=== PATIENT | male | born 1980 | race Caucasian/White ===

== ENCOUNTER → 2022-10-21 11:52 | Outpatient (BNVA) | payer OTHER, SELFPAY | PROVIDERS: PCP Family Medicine; Visit Provider Physician Assistant | DX: Z13.89 Encounter for screening for other disorder (principal) ==

== ENCOUNTER 2022-12-01 07:28 | Outpatient (REF) | payer OTHER, SELFPAY ==
[2022-12-01 11:29] LABS: Appearance Urine Clear; Color Urine Yellow; Glucose Urine UA Negative (Negative); Leukocyte Esterase Urine Negative (Negative); Nitrite Urine Negative (Negative); Specific Gravity - Urine 1.015 (1.005-1.025); Urine Blood Negative (Negative); Urine Ketones Negative (Negative); Urine Protein Negative (Neg-Trace)
[2022-12-01 12:06] LABS: Alanine Aminotransferase 38 U/L (0-40); Albumin Level 4.3 g/dL (3.5-5.0); Alkaline Phosphatase 56 U/L (39-117); Anion Gap 12 (12-20); Aspartate Amino Transferase 20 U/L (5-37); Bilirubin Total 0.7 mg/dL (0.0-1.0); Blood Urea Nitrogen 13 mg/dL (9-16); Calcium 9.2 mg/dL (8.4-10.2); Carbon Dioxide 28 mmol/L (22-29); Chloride 106 mmol/L (96-108); Cholesterol 285 mg/dL; Estimated Glomerular Filt Rate > 60; Glucose Fasting 92 mg/dL (60-99); HDL Cholesterol 44 mg/dL; LDL Cholesterol Calculated 182 mg/dl; Potassium 3.9 mmol/L (3.3-5.1); Sodium 142 mmol/L (135-145); Total Protein 6.3 g/dL (6.5-8.0); Triglycerides 298 mg/dL
[2022-12-01 12:11] LABS: Creatinine Urine 133.77 mg/dL; Microalbum/Creatinine Ratio Ur 3.7 ug/mg cr
[2022-12-01 12:26] LABS: Prostate Specific Antigen Scr 1.72 ng/mL (<0.05-4.0); TSH reflex Free T4 2.62 uIU/mL (0.32-4.0)
[2022-12-08 13:38] LABS: Testosterone, Total 439 ng/dL (250-1100)
== END 2022-12-01 07:29 | disposition home or self-care (01) ==
LOC: HO.WFDLDS 07:28
PROVIDERS: Visit Provider Family Medicine
DX: Z00.00 Encounter for general adult medical examination without abnormal findings (principal); Z12.5 Encounter for screening for malignant neoplasm of prostate; I10 Essential (primary) hypertension; N53.19 Other ejaculatory dysfunction
CPT/HCPCS: 36415; 80053; 80061; 81003; 82043; 84153; 84402; 84403; 84443

== ENCOUNTER 2022-12-04 10:17 | Outpatient (REF) | payer OTHER, SELFPAY ==
--- NOTE | ~2022-12-04 | FL_ITS ---
EXAMINATION: FL BARIUM SWALLOW CLINICAL INFORMATION: Dysphagia. COMPARISON: None available. TECHNIQUE: Barium swallow examination is performed using fluoroscopic evaluation in addition to multiple fluoroscopic spot views. The patient is imaged both upright and prone and using both thick and thin sulfate along with effervescent granules. Fluoroscopy time: 1.9 minutes DAP: 29.123 Gy-cm2 Images: 70 FINDINGS: Following oral administration of thick barium and effervescent granules, there is normal propagation of bolus from the oral cavity through the pharynx and esophagus and into the stomach without any evidence of obstruction, narrowing or stricture. On oral administration of barium-coated solid food, there is normal propagation of bolus from the oral cavity through the esophagus and into the stomach without any obstruction or narrowing. On placing patient prone lying and oral administration of thin barium, there is good distention of entire esophagus without any mucosal abnormality or extrinsic compression. There is a small sliding hiatal hernia with moderate gastroesophageal reflux. FL/FL barium swallow IMPRESSION: Small sliding hiatal hernia with moderate gastroesophageal reflux in prone and supine lying position.
== END 2022-12-04 10:18 | disposition home or self-care (01) ==
LOC: HO.XRAY 10:17
PROVIDERS: PCP Family Medicine; Visit Provider Physician Assistant
DX: R13.10 Dysphagia, unspecified (principal); K21.9 Gastro-esophageal reflux disease without esophagitis; Z80.0 Family history of malignant neoplasm of digestive organs
CPT/HCPCS: 74220

== ENCOUNTER 2023-04-02 12:30 | Day surgery (SDC) | payer OTHER, SELFPAY ==
[2023-03-31 14:35] VITALS: BMI 39.6
[2023-04-02 12:54] VITALS: BMI 38.0
[2023-04-02 13:00] VITALS: BP 155/89; PULSE 87; RESP 15; TEMP 36.8; O2SAT 98
--- NOTE | 2023-04-02 13:00 | P.CONAN_ITS ---
Documented by User: Parisa Earl NP 04/01/23 13:49 HPI - Anesthesia Eval Consult details Narrative: 42yo M for Upper Endoscopy PMFSH Active Problems Active Problems: All Active Problems (Updated 03/31/23 @ 14:30 by Liliana Rick RN) Laboratory exam ordered as part of routine general medical examination (Acute) Left hip pain (Acute) GERD (gastroesophageal reflux disease) (Acute) Family history of esophageal cancer (Acute) Right wrist pain (Acute) Cervicalgia (Acute) Cervical radiculopathy (Acute) Nasal congestion (Acute) Other ejaculatory dysfunction (Acute) Dysphagia (Acute) Adult general medical exam (Acute) Hiatal hernia (Acute) Screening for prostate cancer (Acute) Hyperlipidemia (Acute) Past Medical History Medical History Cervical radiculopathy Dysphagia Elevated cholesterol GERD (gastroesophageal reflux disease) Hiatal hernia Teeth grinding Surgical History Surgical History History of esophagogastroduodenoscopy (EGD) History of hip surgery Social History Social History Household Members Other:: Housing: Apartment Patient Tobacco Use Status: Never used Tobacco e-Cigarette/Vaping Use: Never Used Use of substances other than those prescribed or required for medical reasons: No Are you DNR?: No Advance Directives: No Advance Directives Information Provided: Yes service: No Current occupational status: 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 Hearing needs: No Vision needs: No Meds Allergies Allergy/AdvReac Type Severity Reaction Status Date / Time No Known Allergies Allergy Verified 01/27/23 09:03 Home Medications Medication Instructions Recorded Confirmed Last Taken Type triamcinolone acetonide 55 mcg 1 spray intranasal DAILY 08/28/22 03/31/23 Unknown History nasal spray aerosol (Nasacort) Exam Exam Date and Time: April 01, 2023 1349 Height,Weight and Vital Signs: Height 5 ft 10 in Weight 125.191 kg Assessment and Plan Assessment Anesthesia Assessment: Chart Reviewed Documented by User: Nita Marie DO 04/02/23 13:09 [facility] Past Medical History Medical History Cervical radiculopathy Dysphagia Elevated cholesterol GERD (gastroesophageal reflux disease) Hiatal hernia Teeth grinding Family History Family history of problems with anesthesia: No Surgical History Surgical History History of esophagogastroduodenoscopy (EGD) History of hip surgery History of Problems with Anesthesia: No Social History Social History Household Members Other:: Housing: Apartment Patient Tobacco Use Status: Never used Tobacco e-Cigarette/Vaping Use: Never Used Use of substances other than those prescribed or required for medical reasons: No Are you DNR?: No Advance Directives: No Advance Directives Information Provided: Yes service: No Current occupational status: 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 Hearing needs: No Vision needs: No Meds Allergies Allergy/AdvReac Type Severity Reaction Status Date / Time No Known Allergies Allergy Verified 01/27/23 09:03 Home Medications Medication Instructions Recorded Confirmed Last Taken Type triamcinolone acetonide 55 mcg 1 spray intranasal DAILY 08/28/22 03/31/23 Unknown History nasal spray aerosol (Nasacort) Exam Exam Date and Time: April 02, 2023 1300 Airway Mallampati Class: II TM Dist: >3cm Neck ROM: Full Loose/Missing/Broken Teeth: Yes (multiple broken teeth) Heart: S1S2 Lungs: CTAB Assessment and Plan Assessment Anesthesia Assessment: Anesthesia Plan Discussed and Chart Reviewed Final Anesthetic Review Family History of Problems with Anesthesia: No History of Problems with Anesthesia: No NPO: Yes ASA Class: II Final Preanesthetic Review: No Changes in Pt Med Stat, Meds/Allgs Chart Reviewed, Consent Obtained/Reviewed and Anes Risks/Benef Reviewed Patient Risk: Low Procedure Risk: Low Anesthetic Plan Anesthetic Plan: MAC: and Agree w/ Assess. and Plan Disposition: Standard PACU
[2023-04-02] MEDS: Lactated Ringers 1,000 ML 100 ML IVCONT (13:12)
--- NOTE | 2023-04-02 13:15 | P.HPSUR_ITS ---
Pre-Procedural Eval Section A Date of Service: 04/02/23 Section B Chief Complaint: Gastro-esophageal reflux disease without Details of Present Illness: FH of esophgeal ca, denies dysphagia but has had in past per HPI from GI office Relevant Family History (Specify if Yes): Yes Relevant Social History: None Present Medications: see Short Stay Collaborative assessment Medical History: Significant History (GERD) History of Previous Operations: No relevant previous surgery Allergies: Allergies Allergy/AdvReac Type Severity Reaction Status Date / Time No Known Allergies Allergy Verified 01/27/23 09:03 Review of Systems Sugical H&P ROS: Negative: Constitution, Cardiovascular, Respiratory, Neurological, Psychiatric, Hem-Onc, Allergic/Immunologic, Gastrointestinal, Genitourinary, Musculoskeletal, Integumentary, Endocrine and Eyes/E ars/Nose/Throat Exam Surgical H&P Exam: Normal: HEENT, Normal: Heart, Normal: Lungs, Normal: Extremities, Normal: Abdomen, Normal: Skin and Normal: Neurological Plan Diagnosis/Plan: Unchanged I have reviewed the history and physical and performed a pertinent physical examination on my patient. No changes have occurred unless specified. Time Spent With Patient Time: Total time managing care of this patient today ____ minutes.
--- NOTE | 2023-04-02 13:16 | W.PM.OPN ---
Operative Note Operative Note Date of Service: 04/02/23 Narrative: Procedure Description: EGD Indication: gERD Anesthesia: MAC FLEXIBLE TRANSORAL UPPER GASTROINTESTINAL ENDOSCOPY UPPER ENDOSCOPY Consent: Indications for the procedure and potential complications of bleeding, perforation, reaction to medications and missed diagnosis were discussed with the patient and informed consent was obtained. Instrument: Olympus GIF H 190 J mid size upper endoscope Monitoring: Vital signs and clinical assessment, continuous EKG monitoring, Pulse oximetry, Carbon Dioxide monitoring and blood pressure monitoring were done throughout the procedure. Procedure: The patient was placed in the left lateral decubitis position and pre-procedure medications were administered and a bite block was placed. The endoscope was inserted into the mouth and advanced under direct vision to the third part of duodenum. A careful inspection was made as the upper endoscope was withdrawn including a retroflexed examination of the proximal stomach; Findings and interventions are described below. Findings: Larynx:normal Esophagus: GE junction at 40 cm, diaphragm hiatus at 40 cm, some bogginess at GEJ, bx taken from GEJ, distal and proximal esophagus in separate jars Stomach: Mild patchy gastric erythema. Biopsies were obtained. Grade 2 flap valve on retroflexed examination of the cardia. there were many fundic gland polyps in mid body, some were 12-16 mm and these were removed with cold snare and retireved with net Duodenum: Normal bulb and descending duodenum, Intervention: Biopsies as noted above, polypectomy Impression/Findings: fundic gland polyps esophagitis gastritis PLAN: await bx results
[2023-04-02 13:45] VITALS: BP 127/90; PULSE 95; RESP 20; TEMP 36.3; O2SAT 95
[2023-04-02 14:00] VITALS: BP 140/87; PULSE 80; RESP 20; TEMP 36.7; O2SAT 96
== END 2023-04-02 14:40 | disposition home or self-care (01) ==
PROVIDERS: PCP Family Medicine; Visit Provider Internal Medicine Gastroenterology
PROC: 0DJ08ZZ Inspection of Upper Intestinal Tract, Via Natural or Artificial Opening Endoscopic (ICD-10-PCS; CPT 43235; principal; 2023-04-02 14:10)
DX: K31.7 Polyp of stomach and duodenum (principal); K20.90 Esophagitis, unspecified without bleeding; K21.9 Gastro-esophageal reflux disease without esophagitis; R13.10 Dysphagia, unspecified; K44.9 Diaphragmatic hernia without obstruction or gangrene; E78.5 Hyperlipidemia, unspecified; Z80.0 Family history of malignant neoplasm of digestive organs; Z79.899 Other long term (current) drug therapy
CPT/HCPCS: 43239; 43251; 88305; 88342

== ENCOUNTER → 2023-04-02 12:30 | Outpatient (BNV) | payer OTHER, SELFPAY | PROVIDERS: PCP Family Medicine; Visit Provider Internal Medicine Gastroenterology | DX: K21.9 Gastro-esophageal reflux disease without esophagitis (principal); K29.70 Gastritis, unspecified, without bleeding; K20.90 Esophagitis, unspecified without bleeding | CPT/HCPCS: 43239 ==

== ENCOUNTER 2023-04-14 13:46 | Outpatient (AMB) | payer OTHER, SELFPAY ==
--- NOTE | 2023-04-14 13:43 | A.OFFVIS_ITS ---
Intake Vital Signs 04/14/23 13:49 Height 5 ft 10 in Weight 269 lb BMI 38.6 BP 138/82 Blood Pressure Location Lt brachial Position Sitting Pulse 86 Intake Visit Reasons: S/P EGD; Dr. Delacruz Intake Note: Patient follow up for barium swallow and EGD results. Patient denies any GI issues for today. Nutrient Management Specialist Required: No Accompanied by: Self / Same As Patient Allergies No Known Allergies Allergy (Verified 04/14/23 13:47) HPI HPI Comments History of Present Illness Details A 42 y/o male seen in October with dysphagia-presents today after having EGD with biopsy He no longer has at dysphagia he is taking omeprazole with very good response To reviewed procedure report, pathology and recommendation [facility] Medical History (Updated 04/14/23 @ 14:49 by Sangeeta Lainez PA-C) Cervical radiculopathy Dysphagia Elevated cholesterol GERD (gastroesophageal reflux disease) Hiatal hernia Teeth grinding Surgical History History of esophagogastroduodenoscopy (EGD) History of hip surgery Social History Household Members Other:: Housing: Apartment Patient Tobacco Use Status: Never used Tobacco e-Cigarette/Vaping Use: Never Used service: No Current occupational status: 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 Status: [facility] Collected: 04/02/23 Location: [facility] Received: 04/02/23 Diagnosis A.? Stomach, biopsy:? Gastric body mucosa within normal limits; negative for Helicobacter pylori, intestinal metaplasia and dysplasia. B.? Gastroesophageal junction, biopsy:? Squamous and columnar junctional mucosa with mild chronic inflammation; negative for intestinal metaplasia and dysplasia.? C.? Esophagus, distal, biopsy:? Squamous mucosa within normal limits; negative for inflammation (including intraepithelial eosinophils), fungal organisms and intestinal metaplasia.? D.? Esophagus, proximal, biopsy:? Squamous mucosa within normal limits; negative for inflammation (including intraepithelial eosinophils), fungal organisms and intestinal metaplasia.? E.? Stomach, polyps, biopsy:? Fundic gland polyp (s). Clinical History Pre-Op Dx:? GERD Post-Op Dx: Gastric polyps, esophagitis Assessment & Plan Assessment & Plan (1) Fundic gland polyps of stomach, benign: Comment: Reviewed procedure report, pathology and recommendation Code(s): D13.1 - Benign neoplasm of stomach (2) GERD (gastroesophageal reflux disease): Code(s): K21.9 - Gastro-esophageal reflux disease without esophagitis Plan: Continue PPI Plan Call with concerns Continue PPI Patient Instructions: Call with concerns Continue PPI Coding Level of Care Code Est Pt Level 3 (29646) Diagnoses Fundic gland polyps of stomach, benign D13.1 GERD (gastroesophageal reflux disease) K21.9 Time Spent (min) 20
[2023-04-14 13:49] VITALS: BP 138/82; PULSE 86; BMI 38.6
== END 2023-04-14 16:33 | disposition home or self-care (01) ==
LOC: HO.HGIW 13:46
PROVIDERS: PCP Family Medicine; Visit Provider Physician Assistant
DX: D13.1 Benign neoplasm of stomach (principal); K21.9 Gastro-esophageal reflux disease without esophagitis
CPT/HCPCS: 99213

== ENCOUNTER → 2023-04-14 13:46 | Outpatient (BNVA) | payer OTHER, SELFPAY | PROVIDERS: PCP Family Medicine; Visit Provider Physician Assistant ==

== ENCOUNTER 2023-05-04 07:03 | Outpatient (REF) | payer OTHER, SELFPAY ==
[2023-05-04 12:07] LABS: Anion Gap 13 (12-20); Blood Urea Nitrogen 11 mg/dL (9-16); Calcium 9.9 mg/dL (8.4-10.2); Carbon Dioxide 25 mmol/L (22-29); Chloride 106 mmol/L (96-108); Cholesterol 275 mg/dL (<200); Estimated Glomerular Filt Rate > 60; Glucose Fasting 110 mg/dL (60-99); HDL Cholesterol 50 mg/dL (>40); LDL Cholesterol Calculated 161 mg/dL (<100); Potassium 3.7 mmol/L (3.3-5.1); Sodium 140 mmol/L (135-145); Triglycerides 322 mg/dL (<150)
== END 2023-05-04 07:04 | disposition home or self-care (01) ==
LOC: HO.WFDLDS 07:03
PROVIDERS: Visit Provider Family Medicine
DX: Z00.00 Encounter for general adult medical examination without abnormal findings (principal); E78.5 Hyperlipidemia, unspecified
CPT/HCPCS: 36415; 80048; 80061

== ENCOUNTER 2023-05-07 15:36 | Outpatient (AMB) | payer OTHER, SELFPAY ==
[2023-05-07 15:50] VITALS: BP 130/70; PULSE 82; O2SAT 97; BMI 39.3
--- NOTE | 2023-05-07 15:50 | A.OFFPC_ITS ---
Vital Signs 05/07/23 15:50 Height 5 ft 10 in Weight 274 lb 4 oz BMI 39.3 BP 130/70 Blood Pressure Location Lt brachial Position Sitting Pulse 82 Pulse Source Pulse Oximeter Pulse Oximetry (%) 97 Oxygen Delivery Method Room Air Intake Visit Reasons: f/u hyperlipidemia Intake Note: Patient is here to follow up ojn his blood work today. Allergies No Known Allergies Allergy (Verified 04/14/23 13:47) Tobacco use date assessed: 05/07/23 HPI f/u hyperlipidemia HPI Details 43 y/o male presents to f/u HLD. Labs were drawn 05/04/23. Reviewed labs wth pt. Triglycerides worsened from 298 to 322. TC 275. LDL improved from 182 to 161. HDL 50. 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 Joaquim Fox, Theresa Morales, Travis Gamble and colleagues, with an educational buddy from [employer]. Review of Systems Const Denies chills, Denies fatigue, Denies fever(s), Denies headache(s) and Denies weakness ENT Denies dizziness and Denies headache(s) Card Denies dyspnea Resp Denies cough, Denies dyspnea, Denies wheezing and Denies other (shortness of breath) Musc Denies numbness and Denies tingling Neuro Denies dizziness, Denies headache(s), Denies numbness, Denies tingling and Denies weakness Psych Denies anxiety and Denies depression Endo Denies fatigue Aller/Immun Denies wheezing Physical exam (Primary Care) Vital Signs: Last Vital Signs Pulse 82 05/07/23 15:50 BP 130/70 05/07/23 15:50 Pulse Ox 97 05/07/23 15:50 Oxygen Delivery Method Room Air 05/07/23 15:50 BMI result Body Mass Index 39.3 Tobacco/Smoking Status: Tobacco use Status Tobacco use date assessed 05/07/23 05/07/23 15:57 Patient Tobacco Use Status Never used Tobacco 05/07/23 15:57 e-Cigarette/Vaping Use Never Used 05/07/23 15:57 Thrive Assessment: Date of Thrive Assessment Date Thrive assessed 01/27/23 05/07/23 15:57 Const General: well developed; No acute distress Nutritional Appearance: obese Orientation/consciousness: patient oriented x3 HENMT Head: Yes normocephalic and Yes atraumatic Eyes General: appearance normal, both eyes and all related structures Pupils: Equal, round and reactive pupils present EOM: EOMs intact bilaterally Resp Effort & Inspection: normal respiratory effort Auscultation: clear to auscultation bilaterally Cardio Rate: regular rate Rhythm: regular rhythm Heart sounds: S1 normal heart sound present, S2 normal heart sound present, no gallops, no murmurs and no rubs Neuro General: patient oriented x3 and gait normal Cranial nerves: Yes Equal, round and reactive pupils present Psych Affect: normal affect Assessment and Plan Assessment & Plan (1) Hyperlipidemia: Code(s): E78.5 - Hyperlipidemia, unspecified Plan: Patient was able to bring his TC and LDL cholesterol down but is still significantly above goal of less than 130 for LDL cholesterol Will start atorvastatin 40 mg daily. Recheck in a few months Orders: Orders Lipid Panel Today E78.5 - Hyperlipidemia, unspecified, Z00.00 - Encounter for general adult medical examination without abnormal findings Comprehensive [place]. Panel Fast Today E78.5 - Hyperlipidemia, unspecified, Z00.00 - Encounter for general adult medical examination without abnormal findings Medications: New atorvastatin 40 mg PO BEDTIME 30 tabs 3RF 30 days Coding Level of Care Code Est Pt Level 3 (68532) Diagnoses Hyperlipidemia E78.5
== END 2023-05-07 16:23 | disposition home or self-care (01) ==
PROVIDERS: PCP Family Medicine; Visit Provider Family Medicine
DX: E78.5 Hyperlipidemia, unspecified (principal)
CPT/HCPCS: 99213

== ENCOUNTER 2023-07-31 07:31 | Outpatient (REF) | payer OTHER, SELFPAY ==
[2023-07-31 11:44] LABS: Alanine Aminotransferase 50 U/L (0-40); Albumin Level 4.5 g/dL (3.5-5.0); Alkaline Phosphatase 76 U/L (39-117); Anion Gap 12 (12-20); Aspartate Amino Transferase 23 U/L (5-37); Bilirubin Total 0.5 mg/dL (0.0-1.0); Blood Urea Nitrogen 14 mg/dL (9-16); Calcium 9.6 mg/dL (8.4-10.2); Carbon Dioxide 25 mmol/L (22-29); Chloride 106 mmol/L (96-108); Cholesterol 170 mg/dL (<200); Estimated Glomerular Filt Rate > 60; Glucose Fasting 93 mg/dL (60-99); HDL Cholesterol 43 mg/dL (>40); LDL Cholesterol Calculated 81 mg/dL (<100); Potassium 3.4 mmol/L (3.3-5.1); Sodium 140 mmol/L (135-145); Total Protein 7.1 g/dL (6.5-8.0); Triglycerides 233 mg/dL (<150)
== END 2023-07-31 07:32 | disposition home or self-care (01) ==
LOC: HO.WFDLDS 07:31
PROVIDERS: Visit Provider Family Medicine
DX: Z00.00 Encounter for general adult medical examination without abnormal findings (principal); E78.5 Hyperlipidemia, unspecified
CPT/HCPCS: 36415; 80053; 80061

== ENCOUNTER 2023-08-05 15:40 | Outpatient (AMB) | payer OTHER, SELFPAY ==
--- NOTE | 2023-08-05 15:54 | A.OFFPC_ITS ---
Vital Signs 08/05/23 15:56 Height 5 ft 10 in Weight 278 lb 6 oz BMI 39.9 BP 120/72 Blood Pressure Location Lt brachial Position Sitting Pulse 76 Pulse Source Pulse Oximeter Pulse Oximetry (%) 97 Oxygen Delivery Method Room Air Intake Visit Reasons: f/u HLD Intake Note: Patient is here for follow up on HDL. Allergies No Known Allergies Allergy (Verified 08/05/23 15:57) Tobacco use date assessed: 05/07/23 HPI f/u HLD HPI Details 43 y/o male presents to f/u HLD. Labs were drawn 07/31/23. Reviewed labs with pt. Elevated ALT of 50. Triglycerides 233. TC 170. LDL 81. HDL 43. He is on artovastatin 40mg daily. 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 Joaquim Fox, Theresa Morales, rTavis Gamble and colleagues, with an educational buddy from [employer]. Review of Systems Const Denies chills, Denies fatigue, Denies fever(s), Denies headache(s) and Denies weakness ENT Denies dizziness and Denies headache(s) Card Denies dyspnea Resp Denies cough, Denies dyspnea, Denies wheezing and Denies other (shortness of breath) Musc Denies numbness and Denies tingling Neuro Denies dizziness, Denies headache(s), Denies numbness, Denies tingling and Denies weakness Psych Denies anxiety and Denies depression Endo Denies fatigue Aller/Immun Denies wheezing Physical exam (Primary Care) Vital Signs: Last Vital Signs Pulse 76 08/05/23 15:56 BP 120/72 08/05/23 15:56 Pulse Ox 97 08/05/23 15:56 Oxygen Delivery Method Room Air 08/05/23 15:56 BMI result Body Mass Index 39.9 Tobacco/Smoking Status: Tobacco use Status Tobacco use date assessed 05/07/23 08/05/23 15:55 Patient Tobacco Use Status Never used Tobacco 08/05/23 15:55 e-Cigarette/Vaping Use Never Used 08/05/23 15:55 Thrive Assessment: Date of Thrive Assessment Date Thrive assessed 01/27/23 08/05/23 15:55 Const General: well developed; No acute distress Nutritional Appearance: well nourished Orientation/consciousness: patient oriented x3 HENMT Head: Yes normocephalic and Yes atraumatic Eyes General: appearance normal, both eyes and all related structures Pupils: Equal, round and reactive pupils present EOM: EOMs intact bilaterally Resp Effort & Inspection: normal respiratory effort Neuro General: patient oriented x3 and gait normal Cranial nerves: Yes Equal, round and reactive pupils present Psych Affect: normal affect Assessment and Plan Assessment & Plan (1) Hyperlipidemia: Code(s): E78.5 - Hyperlipidemia, unspecified Plan: Lipids?are?much?improved. Mild?elevation?in?ALT; possible?relation?to?medication?but?I?doubt?this Nevertheless?will?decrease?atorvastatin?to?20?mg?daily?and?recheck?lipids?and?li samina?enzymes?in?2?months. (2) Elevated ALT measurement: Code(s): R74.01 - Elevation of levels of liver transaminase levels Plan: As?above Also?advised?patient?hydrate?well?and?work?at?some?weight?loss Orders: Orders Comprehensive [place]. Panel Fast Today E78.5 - Hyperlipidemia, unspecified, Z00.00 - Encounter for general adult medical examination without abnormal findings Lipid Panel Today E78.5 - Hyperlipidemia, unspecified, Z00.00 - Encounter for general adult medical examination without abnormal findings Medications: Changed From atorvastatin 40 mg PO BEDTIME 30 tabs 3RF 30 days To atorvastatin 20 mg PO BEDTIME 30 tabs 3RF 30 days Coding Level of Care Code Est Pt Level 3 (90010) Diagnoses Hyperlipidemia E78.5 Elevated ALT measurement R74.01
[2023-08-05 15:56] VITALS: BP 120/72; PULSE 76; O2SAT 97; BMI 39.9
== END 2023-08-05 16:34 | disposition home or self-care (01) ==
PROVIDERS: PCP Family Medicine; Visit Provider Family Medicine
DX: E78.5 Hyperlipidemia, unspecified (principal); R74.01 Elevation of levels of liver transaminase levels
CPT/HCPCS: 99213

== ENCOUNTER 2023-10-06 07:07 | Outpatient (REF) | payer OTHER, SELFPAY ==
[2023-10-06 12:02] LABS: Alanine Aminotransferase 34 U/L (0-40); Albumin Level 4.5 g/dL (3.5-5.0); Alkaline Phosphatase 79 U/L (39-117); Anion Gap 14 (12-20); Aspartate Amino Transferase 20 U/L (5-37); Bilirubin Total 0.4 mg/dL (0.0-1.0); Blood Urea Nitrogen 9 mg/dL (9-16); Calcium 9.7 mg/dL (8.4-10.2); Carbon Dioxide 26 mmol/L (22-29); Chloride 105 mmol/L (96-108); Cholesterol 197 mg/dL (<200); Estimated Glomerular Filt Rate > 60; Glucose Fasting 92 mg/dL (60-99); HDL Cholesterol 48 mg/dL (>40); LDL Cholesterol Calculated 116 mg/dL (<100); Sodium 141 mmol/L (135-145); Total Protein 7.3 g/dL (6.5-8.0); Triglycerides 166 mg/dL (<150)
== END 2023-10-06 07:08 | disposition home or self-care (01) ==
LOC: HO.WFDLDS 07:07
PROVIDERS: Visit Provider Family Medicine
DX: Z00.00 Encounter for general adult medical examination without abnormal findings (principal); E78.5 Hyperlipidemia, unspecified
CPT/HCPCS: 36415; 80053; 80061

== ENCOUNTER 2023-10-08 14:24 | Outpatient (AMB) | payer OTHER, SELFPAY ==
--- NOTE | 2023-10-08 14:28 | A.OFFPC_ITS ---
Vital Signs 10/08/23 14:30 Height 5 ft 10 in Weight 277 lb 8 oz BMI 39.8 BP 143/77 H Blood Pressure Location Rt brachial Position Sitting Pulse 79 Pulse Source Pulse Oximeter Pulse Oximetry (%) 98 Oxygen Delivery Method Room Air Intake Visit Reasons: f/u HLD Intake Note: Patient is following up on HLD, and would like to talk about Finasteride, and right shoulder pain. Allergies No Known Allergies Allergy (Verified 08/05/23 15:57) Tobacco use date assessed: 05/07/23 HPI f/u HLD HPI Details 43 y/o male presents to f/u hyperlipide kirstin and elevated liver enzymes. Decreased artovastatin as his LDL cholesterol improved significantly and HDL had dropped some as well. Labs were drawn 10/06/23. Reviewed labs with pt. Triglycerides improved from 233 to 166. TC 197. LDL 116. HDL 48. He is on artovastatin 20mg. Liver enzymes back to normal range. Pt reports R shoulder pain after falling at work. Pt is requesting finasteride for complaints of hair thinning. HPI Comments History of Present Illness Details Documentation assistance for Rodney eKyes MD, was provided by Kevin Smith,? Flosser on 10/08/2023 3:03 PM EST. I, Dr. Keyes, have read, observed, and verified documentation.? 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 1. Little interest or pleasure in doing things: not at all 2. Feeling down, depressed, or hopeless: not at all 3. Trouble falling or staying asleep, or sleeping too much: not at all 4. Feeling tired or having little energy: not at all 5. Poor appetite or overeating: not at all 6. Feeling bad about yourself - or that you are a failure or have let yourself or your family down: not at all 7. Trouble concentrating on things, such as reading the newspaper or watching television: not at all 8. Moving or speaking so slowly that other people could have noticed. Or the opposite - being so fidgety or restless that you have been moving around a lot more than usual: not at all 9. Thoughts that you would be better off or of hurting yourself in some way: not at all Total score: 0 Depression Screening Interpretation: Negative Depression Screening Done: Yes Source: Developed by Drs. Joaquim Fox, Theresa Morales, Travis Gamble and colleagues, with an educational buddy from [employer]. Thrive Questionnaire Date Thrive assessed: 10/08/23 I am a: Patient What is your living situation today?: I have a steady place to live Within the past 12 months, did the food you bought not last and you didn't have the money to get more?: Never true Within the past 12 months, did you worry whether your food would run out before you got money to buy more?: Never true Do you have trouble paying for medicines?: No Do you have trouble getting transportation to medical appointments?: No Do you have trouble paying your heating and electricity bill?: No Do you have trouble taking care of your child, family member or friend?: No Do you have trouble with day-to-day activities such as bathing, preparing meals, shopping, managing finances, etc.?: No Are you currently unemployed and looking for a job?: Yes Are you interested in more education?: No THRIVE Score: 0 AUDIT C Alcohol Use Questionnaire (AUDIT-C) 1. How often do you have a drink containing alcohol?: Monthly or less 2. How many drinks containing alcohol do you have on a typical day when you are drinking?: 1 or 2 3. How often do you have six or more drinks on one occasion?: Never Total Score: 1 OJ-7 AMB Questionnaire OJ-7 Date OJ - 7 assessed: 10/08/23 Feeling nervous, anxious, or on edge: 0 = Not at all Not being able to stop or control worryin = Not at all Worrying too much about different things: 0 = Not at all Trouble relaxin = Not at all Being so restless that it is hard to sit still: 0 = Not at all Becoming easily annoyed or irritable: 0 = Not at all Feeling afraid as if something awful might happen: 0 = Not at all Total OJ-7 score (0-4 normal; 5-9 mild; 10-14 moderate; 15-21 severe): 0 Source: Developed by Drs. Joaquim Fox, Theresa Morales, Travis Gamble and colleagues, with an educational buddy from [employer]. Review of Systems Const Denies chills, Denies fatigue, Denies fever(s), Denies headache(s) and Denies weakness ENT Denies dizziness and Denies headache(s) Card Denies dyspnea Resp Denies cough, Denies dyspnea, Denies wheezing and Denies other (shortness of breath) Musc Details: R shoulder pain Denies numbness and Denies tingling Neuro Denies dizziness, Denies headache(s), Denies numbness, Denies tingling and Denies weakness Psych Denies anxiety and Denies depression Endo Denies fatigue Aller/Immun Denies wheezing Physical exam (Primary Care) Vital Signs: Last Vital Signs Pulse 79 10/08/23 14:30 BP 143/77 H 10/08/23 14:30 Pulse Ox 98 10/08/23 14:30 Oxygen Delivery Method Room Air 10/08/23 14:30 BMI result Body Mass Index 39.8 Tobacco/Smoking Status: Tobacco use Status Tobacco use date assessed 05/07/23 10/08/23 14:34 Patient Tobacco Use Status Never used Tobacco 10/08/23 14:34 e-Cigarette/Vaping Use Never Used 10/08/23 14:34 PHQ-9: PHQ-9 Score PHQ-9: Total score 0 10/08/23 14:37 Depression Screening Interpretation: Negative Thrive Assessment: Date of Thrive Assessment Date Thrive assessed 10/08/23 10/08/23 14:37 Const General: well developed; No acute distress Nutritional Appearance: well nourished Orientation/consciousness: patient oriented x3 HENMT Head: Yes normocephalic and Yes atraumatic Eyes General: appearance normal, both eyes and all related structures Pupils: Equal, round and reactive pupils present EOM: EOMs intact bilaterally Resp Effort & Inspection: normal respiratory effort Neuro General: patient oriented x3 and gait normal Cranial nerves: Yes Equal, round and reactive pupils present Psych Affect: normal affect Assessment and Plan Assessment & Plan (1) Hyperlipidemia: Code(s): E78.5 - Hyperlipidemia, unspecified Plan: Lipids?showing?good?control?except?triglycerides?are?slightly?above Goal Continue?working?at?diet?low?in?saturated?fats?and?cholesterol Encouraged?diet?exercise?and?weight?loss (2) Elevated ALT measurement: Code(s): R74.01 - Elevation of levels of liver transaminase levels Plan: This?has?resolved Encouraged?weight?loss (3) Right shoulder pain: Code(s): M25.511 - Pain in right shoulder Plan: Likely?muscular?strain?and?should?benefit?from?physical?therapy-ordered Call?or?return?to?office?if?not?improving (4) Hair thinning: Code(s): L65.9 - Nonscarring hair loss, unspecified Plan: Patient?would?like?to?try?minoxidil?with?finasteride Topical?solution?prescribed Risks/benefits?discussed Call?or?return?to?office?if?any?problems Orders: Orders PT Evaluation and Treatment Today M25.511 - Pain in right shoulder Medications: New minoxidil-finasteride 5-0.1 % 2 mL topical DAILY 60 mL 2RF 30 days Coding Level of Care Code Est Pt Level 4 (96495) Diagnoses Hyperlipidemia E78.5 Elevated ALT measurement R74.01 Right shoulder pain M25.511 Hair thinning L65.9
[2023-10-08 14:30] VITALS: BP 143/77; PULSE 79; O2SAT 98; BMI 39.8
== END 2023-10-08 15:08 | disposition home or self-care (01) ==
PROVIDERS: PCP Family Medicine; Visit Provider Family Medicine
DX: E78.5 Hyperlipidemia, unspecified (principal); R74.01 Elevation of levels of liver transaminase levels; M25.511 Pain in right shoulder; L65.9 Nonscarring hair loss, unspecified
CPT/HCPCS: 99214

== ENCOUNTER 2024-01-08 13:00 | Outpatient (RCR) | payer OTHER, SELFPAY | END 2024-03-29 14:31 | disposition home or self-care (01) | LOC: HO.PTWFD 13:00 | PROVIDERS: PCP Family Medicine; Visit Provider Family Medicine | DX: M25.511 Pain in right shoulder (principal) | CPT/HCPCS: 97110; 97140; 97161; 97535 ==

== ENCOUNTER 2024-03-28 07:10 | Outpatient (REF) | payer OTHER, SELFPAY ==
[2024-03-28 09:08] LABS: Alanine Aminotransferase 39 U/L (0-40); Albumin Level 4.5 g/dL (3.5-5.0); Alkaline Phosphatase 91 U/L (39-117); Anion Gap 12 (12-20); Aspartate Amino Transferase 24 U/L (5-37); Bilirubin Total 0.4 mg/dL (0.0-1.0); Blood Urea Nitrogen 8 mg/dL (9-16); Calcium 9.2 mg/dL (8.4-10.2); Carbon Dioxide 26 mmol/L (22-29); Chloride 109 mmol/L (96-108); Cholesterol 176 mg/dL (<200); Estimated Glomerular Filt Rate > 60; Glucose Fasting 96 mg/dL (60-99); HDL Cholesterol 46 mg/dL (>40); LDL Cholesterol Calculated 89 mg/dL (<100); Potassium 3.3 mmol/L (3.3-5.1); Sodium 144 mmol/L (135-145); Triglycerides 206 mg/dL (<150)
== END 2024-03-28 07:11 | disposition home or self-care (01) ==
LOC: HO.LAB 07:10
PROVIDERS: PCP Family Medicine; Visit Provider Family Medicine
DX: Z00.00 Encounter for general adult medical examination without abnormal findings (principal); E78.5 Hyperlipidemia, unspecified
CPT/HCPCS: 36415; 80053; 80061

== ENCOUNTER 2024-03-31 14:03 | Outpatient (AMB) | payer OTHER, SELFPAY ==
--- NOTE | 2024-03-31 14:13 | A.OFFPC_ITS ---
Vital Signs 03/31/24 14:15 Height 5 ft 10 in Weight 271 lb 4 oz BMI 38.9 BP 130/70 Blood Pressure Location Lt brachial Position Sitting Respiration 16 Pulse 77 Pulse Source Pulse Oximeter Temp 98 F Temp Source Tympanic Pulse Oximetry (%) 98 Oxygen Delivery Method Room Air Intake Visit Reasons: f/u hyperlipidemia Intake Note: follow up on hyperlipidemia Allergies No Known Allergies Allergy (Verified 03/31/24 14:14) Medication List - Last Reconciled 03/31/24 by Rodney Keyes MD atorvastatin 20 mg PO BEDTIME 30 days minoxidil 5% ([employer] Minoxidil) 1 ea topical DAILY 30 days omeprazole 20 mg PO DAILY sildenafil 50 mg PO DAILY PRN 30 days Tobacco use date assessed: 05/07/23 HPI f/u hyperlipidemia HPI Details 43 y/o male presents to f/u hyperlipidem ia, elevated liver enzymes. Labs drawn 03/28/24. Reviewed labs with pt. Triglycerides 206. TC 176. LDL improved from 116 to 89. He is on artovastatin 20mg. HDL 46. AST 24. ALT 39. Pt reports fatigue x2 months. He also reports a low libido/difficulty maintaining an erection. Pt states he does not feel rested when he goes to sleep. He reports daytime fatigue. He reports issues with snoring. He denies waking up gasping for air recently. HPI Comments History of Present Illness Details Documentation assistance for Rodney Keyes MD, was provided by Kevin Smith, Detailer on 03/31/2024 at 2:53PM EST. I, Dr. Keyes, have read, observed, and verified documentation. 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 Joaquim Fox, Theresa Morales, Travis Gamble and colleagues, with an educational buddy from [employer]. Review of Systems Const Denies chills, Reports fatigue, Denies fever(s), Denies headache(s) and Denies weakness ENT Denies dizziness and Denies headache(s) Card Denies dyspnea Resp Denies cough, Denies dyspnea, Denies wheezing and Denies other (shortness of breath) Musc Denies numbness and Denies tingling Neuro Denies dizziness, Denies headache(s), Denies numbness, Denies tingling and Denies weakness Psych Denies anxiety and Denies depression Endo Reports fatigue Aller/Immun Denies wheezing Physical exam (Primary Care) Vital Signs: Last Vital Signs Temp 98 F 03/31/24 14:15 Pulse 77 03/31/24 14:15 Resp 16 03/31/24 14:15 BP 130/70 03/31/24 14:15 Pulse Ox 98 03/31/24 14:15 Oxygen Delivery Method Room Air 03/31/24 14:15 BMI result Body Mass Index 38.9 Tobacco/Smoking Status: Tobacco use Status Tobacco use date assessed 05/07/23 03/31/24 14:17 Patient Tobacco Use Status Never used Tobacco 03/31/24 14:17 e-Cigarette/Vaping Use Never Used 03/31/24 14:17 Thrive Assessment: Date of Thrive Assessment Date Thrive assessed 10/08/23 03/31/24 14:17 Const General: well developed; No acute distress Nutritional Appearance: obese Orientation/consciousness: patient oriented x3 HENMT Head: Yes normocephalic and Yes atraumatic Eyes General: appearance normal, both eyes and all related structures Pupils: Equal, round and reactive pupils present EOM: EOMs intact bilaterally Resp Effort & Inspection: normal respiratory effort Auscultation: clear to auscultation bilaterally Cardio Rate: regular rate Rhythm: regular rhythm Heart sounds: S1 normal heart sound present, S2 normal heart sound present, no gallops, no murmurs and no rubs Neuro General: patient oriented x3 and gait normal Cranial nerves: Yes Equal, round and reactive pupils present Psych Affect: normal affect Assessment and Plan Assessment & Plan (1) Hyperlipidemia: Code(s): E78.5 - Hyperlipidemia, unspecified Plan: LDL?cholesterol?is?well?controlled?on?atorvastatin. Continue?current?medication Continue?to?work?at?a?diet?low?in?saturated?fats?and?cholesterol Encouraged?diet?and?exercise?and?weight?loss (2) Elevated ALT measurement: Code(s): R74.01 - Elevation of levels of liver transaminase levels Plan: Patient?had?had?elevated?liver?enzymes. Liver?enzymes?remain?within?normal?range?now Encouraged?weight?loss (3) Fatigue: Code(s): R53.83 - Other fatigue Plan: Daytime?sleepiness?and?fatigue. Patient?does?not?feel?rested?when?he?awakens Patient?notes?some?snoring?and?says?he?had?a?history?of?gasping?while?sleeping? though?not?currently?noting?that?symptom. (4) Erectile dysfunction: Code(s): N52.9 - Male erectile dysfunction, unspecified Plan: This?is?likely?secondary?to?poor?sleep?and?fatigue. Checking?testosterone?levels?as?well He?can?trial?sildenafil (5) Hypersomnia: Code(s): G47.10 - Hypersomnia, unspecified Plan: Likely?sleep?apnea Referred?to?Sleep?Medicine Orders: Orders Testosterone, Free/Total Today N52.9 - Male erectile dysfunction, unspecified TSH reflex Free T4 Today R53.83 - Other fatigue, Z00.00 - Encounter for general adult medical examination without abnormal findings Complete Blood Count Auto Diff Today R53.83 - Other fatigue, Z00.00 - Encounter for general adult medical examination without abnormal findings Comprehensive Met. Panel Today R53.83 - Other fatigue Hemoglobin A1c Today E78.5 - Hyperlipidemia, unspecified, R73.01 - Impaired fasting glucose Referrals Sleep Medicine Referral G47.10 - Hypersomnia, unspecified Medications: New sildenafil administer 30 minutes to 4 hours before activity 50 mg PO DAILY 30 days PRN 6 tabs 3RF sexual activity Coding Level of Care Code Est Pt Level 4 (62452) Diagnoses Hyperlipidemia E78.5 Elevated ALT measurement R74.01 Fatigue R53.83 Erectile dysfunction N52.9 Hypersomnia G47.10
[2024-03-31 14:15] VITALS: BP 130/70; PULSE 77; RESP 16; TEMP 36.6; O2SAT 98; BMI 38.9
== END 2024-03-31 15:06 | disposition home or self-care (01) ==
PROVIDERS: PCP Family Medicine; Visit Provider Family Medicine
DX: E78.5 Hyperlipidemia, unspecified (principal); R74.01 Elevation of levels of liver transaminase levels; R53.83 Other fatigue; N52.9 Male erectile dysfunction, unspecified; G47.10 Hypersomnia, unspecified
CPT/HCPCS: 99214

== ENCOUNTER 2024-04-11 06:27 | Outpatient (REF) | payer OTHER, SELFPAY ==
[2024-04-11 06:57] LABS: MANUAL DIFF FLAG NO
[2024-04-11 07:17] LABS: Basophils Absolute Auto 0.1 X10*3/uL (0.0-0.2); Basophils Percent Auto 0.7 % (0-2); Eosinophils Absolute Auto 0.1 X10*3/uL (0.0-0.4); Eosinophils Percent Auto 1.6 % (0-4); Hematocrit 40.9 % (42.0-52.0); Hemoglobin 13.9 g/dl (14.0-18.0); Imm Gran Abs Auto 0.05 X10*3/uL (0.00-0.03); Imm Gran Pct Auto 0.6 % (0.0-0.4); Lymphocytes Absolute Auto 3.3 X10*3/uL (1.2-4.9); Lymphocytes Percent Auto 36.4 % (20-40); Mean Corpuscular Hemoglobin 27.4 pg (27.0-33.0); Mean Corpuscular Volume 80.7 fL (80.0-98.0); Mean Platelet Volume 10.1 fL (9.4-12.4); Monocytes Absolute Auto 0.7 X10*3/uL (0.1-1.2); Monocytes Percent Auto 8.1 % (2-11); Neutrophils Absolute Auto 4.8 x10*3/uL (2.0-8.3); Neutrophils Percent Auto 52.6 % (45-73); Platelet Count 284 X10*3/uL (160-400); Red Blood Count 5.07 X10*6/uL (4.60-5.80); Red Cell Distribution Width 12.7 % (11.0-16.0)
[2024-04-11 07:44] LABS: Estimated Average Glucose 103 mg/dL; Hemoglobin A1c % 5.2 % (<6.0)
[2024-04-11 07:55] LABS: Alanine Aminotransferase 32 U/L (0-40); Albumin Level 4.5 g/dL (3.5-5.0); Alkaline Phosphatase 99 U/L (39-117); Anion Gap 13 (12-20); Aspartate Amino Transferase 20 U/L (5-37); Bilirubin Total 0.7 mg/dL (0.0-1.0); Blood Urea Nitrogen 9 mg/dL (9-16); Calcium 9.3 mg/dL (8.4-10.2); Carbon Dioxide 26 mmol/L (22-29); Chloride 107 mmol/L (96-108); Estimated Glomerular Filt Rate > 60; Glucose Random 95 mg/dL (60-115); Potassium 3.6 mmol/L (3.3-5.1); Sodium 142 mmol/L (135-145); Total Protein 6.9 g/dL (6.5-8.0)
[2024-04-11 08:12] LABS: TSH reflex Free T4 0.62 uIU/mL (0.32-4.0)
[2024-04-15 20:38] LABS: Testosterone, Free 46.2 pg/mL (35.0-155.0); Testosterone, Total 385 ng/dL (250-1100)
== END 2024-04-11 06:28 | disposition home or self-care (01) ==
LOC: HO.LAB 06:27
PROVIDERS: PCP Family Medicine; Visit Provider Family Medicine
DX: Z00.00 Encounter for general adult medical examination without abnormal findings (principal); R53.83 Other fatigue; N52.9 Male erectile dysfunction, unspecified; R73.01 Impaired fasting glucose; E78.5 Hyperlipidemia, unspecified
CPT/HCPCS: 36415; 80053; 83036; 84402; 84403; 84443; 85025

== ENCOUNTER 2024-05-03 13:44 | Outpatient (AMB) | payer OTHER, SELFPAY ==
--- NOTE | 2024-05-03 14:00 | A.OFFPC_ITS ---
Vital Signs 05/03/24 14:03 Height 5 ft 10 in Weight 269 lb 8 oz BMI 38.7 BP 130/80 Blood Pressure Location Lt brachial Position Sitting Respiration 12 Pulse 88 Pulse Source Monitor Temp 98.3 F Temp Source Tympanic Pulse Oximetry (%) 97 Oxygen Delivery Method Room Air Intake Visit Reasons: Discharge from [facility]/ Intake Note: discharge follow up Allergies No Known Allergies Allergy (Verified 05/03/24 14:03) Medication List - Last Reconciled 05/03/24 by Rodney Keyes MD atorvastatin 20 mg PO BEDTIME 30 days minoxidil 5% (Day[employer] Minoxidil) 1 ea topical DAILY 30 days omeprazole 20 mg PO DAILY sildenafil 50 mg PO DAILY PRN 30 days Tobacco use date assessed: 05/07/23 HPI Discharge from [facility] HPI Details 44 y/o male presented to [facility] ED for vert igo dizziness & N/V on 04/23/24. Had reported dizziness, vomiting and had several episodes of vomiting with some red tinging in vomitus. Denied any recent fever, nasal congestion, chest pain, shortness of breath, abd. pain, leg pain or swelling. T?of?the?head?was?negative.??EKG?negative except freq PVCs.??Chest?x- ray?negative. Exam?consistent?with?peripheral?vertigo. Patient?was?still?unsteady?on?his?feet?in?the?ED?after Mikayla Maneuver (improved)?IV?fluids?and?meclizine?in?so?was?admitted?for?observation. Continued?IV?hydration?and?patient?was?discharged?on?04/24/2024 Admitted to the hospital. Pt notes symptoms has resolved. No longer taking meclizine or ondansetron. TCM TCM Information Date of Discharge 04/24/24 Discharged From Other ([facility] ) Interactive Contact Date (Reference documentation from this date) 05/03/24 HPI Comments History of Present Illness Details Documentation assistance for Rodney Keyes MD, was provided by Kevin Smith,? Room Service Food Server on 05/03/2024 at 2:34 PM EST. I, Dr. Keyes, have read, observed, and verified documentation. 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 Joaquim Fox, Theresa Morales, Travis Gamble and colleagues, with an educational buddy from [employer]. Review of Systems Const Denies chills, Denies fatigue, Denies fever(s), Denies headache(s) and Denies weakness ENT Denies dizziness and Denies headache(s) Card Denies dyspnea Resp Denies cough, Denies dyspnea, Denies wheezing and Denies other (shortness of b reath) Musc Denies numbness and Denies tingling Neuro Denies dizziness, Denies headache(s), Denies numbness, Denies tingling and Denies weakness Psych Denies anxiety and Denies depression Endo Denies fatigue Aller/Immun Denies wheezing Physical exam (Primary Care) Vital Signs: Last Vital Signs Temp 98.3 F 05/03/24 14:03 Pulse 43 L 05/03/24 14:03 Resp 12 05/03/24 14:03 BP 130/80 05/03/24 14:03 Pulse Ox 97 05/03/24 14:03 Oxygen Delivery Method Room Air 05/03/24 14:03 BMI result Body Mass Index 38.7 Tobacco/Smoking Status: Tobacco use Status Tobacco use date assessed 05/07/23 05/03/24 14:06 Patient Tobacco Use Status Never used Tobacco 05/03/24 14:06 e-Cigarette/Vaping Use Never Used 05/03/24 14:06 Thrive Assessment: Date of Thrive Assessment Date Thrive assessed 10/08/23 05/03/24 14:06 Const General: well developed; No acute distress Nutritional Appearance: well nourished Orientation/consciousness: patient oriented x3 HENMT Head: Yes normocephalic and Yes atraumatic Eyes General: appearance normal, both eyes and all related structures Pupils: Equal, round and reactive pupils present EOM: EOMs intact bilaterally Resp Effort & Inspection: normal respiratory effort Neuro General: patient oriented x3 and gait normal Cranial nerves: Yes Equal, round and reactive pupils present Psych Affect: normal affect Assessment and Plan Assessment & Plan (1) Vertigo: Code(s): R42 - Dizziness and giddiness Plan: Has?significantly?improved?over?the?last?week. Still?has?some?mild?symptoms.??He?has?been?referred?for?vestibular?rehab. He?is?not?using?meclizine?or?ondansetron?but?has?these?available. I?advised?him?to?hydrate?well?and?use?medication?as?needed. 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 Referring?him?to?Cardiology. Can?trial?metoprolol?after?Holter?monitor?test, while?awaiting?visit?with?Cardiology. Orders: Orders ECG holter monitor 48 hour Today I49.3 - Ventricular premature depolarization Referrals Cardiology Referral I49.3 - Ventricular premature depolarization Medications: New metoprolol succinate ER 12.5 mg (1/2 x 25 mg) PO DAILY 30 days 15 tabs 0RF Coding Level of Care Code Est Pt Level 3 (87067) Diagnoses Vertigo R42 Frequent PVCs I49.3
[2024-05-03 14:03] VITALS: BP 130/80; PULSE 88; RESP 12; TEMP 36.8; O2SAT 97; BMI 38.7
== END 2024-05-03 14:52 | disposition home or self-care (01) ==
PROVIDERS: PCP Family Medicine; Visit Provider Family Medicine
DX: R42 Dizziness and giddiness (principal); I49.3 Ventricular premature depolarization

== ENCOUNTER → 2024-05-03 13:44 | Outpatient (BNVA) | payer OTHER, SELFPAY | PROVIDERS: PCP Family Medicine; Visit Provider Family Medicine | DX: R42 Dizziness and giddiness (principal); I49.3 Ventricular premature depolarization ==

== ENCOUNTER → 2024-05-16 11:21 | Outpatient (REF) | payer OTHER, SELFPAY ==
--- NOTE | 2024-05-16 11:28 | HM_ITS ---
Conclusion: 1. Patient was monitored for total period of 2 days 2. Baseline was normal sinus rhythm with average heart of 74 beats per minute 3. No significant pauses noted 4. Frequent mostly isolated PVCs noted with total burden of about 4% 5. Patient marked the counter 6 times correlating with PVCs MTDD
== END ==
LOC: HO.CARD 11:21
PROVIDERS: PCP Family Medicine; Visit Provider Family Medicine
DX: I49.3 Ventricular premature depolarization (principal)
CPT/HCPCS: 93225

== ENCOUNTER → 2024-05-16 11:28 | Outpatient (BNV) | payer OTHER, SELFPAY | PROVIDERS: PCP Family Medicine; Visit Provider Internal Medicine Cardiovascular Disease | DX: I49.3 Ventricular premature depolarization (principal) | CPT/HCPCS: 93227 ==

== ENCOUNTER 2024-05-17 14:50 | Outpatient (RCR) | payer OTHER, SELFPAY ==
[2024-05-17 14:53] VITALS: BP 148/78; PULSE 85
--- NOTE | 2024-05-17 18:20 | MHC.PT.EP ---
[facility] [place] Office [place] Office [place] Office [address] Ninfa Hammonds [address] [phone] F: [phone] F: [phone] F: [phone] F: [phone] Physical Therapy Plan of Care Date of Evaluation: 05/17/24 Date of Surgery: Diagnosis: BPPV Assessment: Pt is a pleasant 44yo M who presents to PT with diagnosis of BPPV. Pt was seen at [facility] ER on 04/23/24 due to dizziness. He was treated with Mikayla maneuver x 1 rep and was also prescribed medication. Upon assessment today, pt tested negative for BPPV in B posterior and horizontal canals. His balance assessment was normal. He scored 24/24 on Dynamic Gait Index assessment. He ambulates independently with steady gait. He had no dizziness throughout his evaluation today. No PT indicated at this time. I discussed with pt if his symptoms return I will keep his chart open for 30 days so he can schedule an appointment to be reassessed as needed, pt verbalized understanding Frequency and Duration: The patient will be seen Short Term Goals: Residential Goals: Treatment Plan: Modalities to reduce pain, spasms and effusion. Manual therapy to restore motion and function. Therapeutic exercise to improve strength and flexibility. Neuromuscular re-education for posture and balance. Therapeutic activities to return to functional activities of daily living. Electronically signed by: Arina Desir, PT, DPT Please sign and return to therapist. Thank you for your referral.
--- NOTE | 2024-06-22 14:42 | MHC.PT.DC ---
[facility] [place] Office [place] Office [place] Office [address] Ninfa Hammonds [address] [phone] F: [phone] F: [phone] F: [phone] F: [phone] Physical Therapy Discharge Report Diagnosis: BPPV Date of Surgery: Date of Evaluation: 05/17/24 Date of Discharge: 06/22/24 Treatments to Date: 1 Cancellations to Date: No Shows to Date: Discharge Status: Discharge Summary: Pt was evaluated for PT on 05/17/24. At time of evaluation he was negative for BPPV. His balance assessment was normal and he scored a 24/24 on Dynamic Gait Assessment. No PT was indicated at time of PT eval. I discussed with pt that I would leave his chart open for 30 days in case he had recurrence of symptoms. Pt is being D/C from skilled PT as he has not attended or called to schedule in > days. Pt current level of function unknown at this time From PT assessment on 05/17/24: Pt is a pleasant 44yo M who presents to PT with diagnosis of BPPV. Pt was seen at [facility] ER on 04/23/24 due to dizziness. He was treated with Mikayla maneuver x 1 rep and was also prescribed medication. Upon assessment today, pt tested negative for BPPV in B posterior and horizontal canals. His balance assessment was normal. He scored 24/24 on Dynamic Gait Index assessment. He ambulates independently with steady gait. He had no dizziness throughout his evaluation today. No PT indicated at this time. I discussed with pt if his symptoms return I will keep his chart open for 30 days so he can schedule an appointment to be reassessed as needed, pt verbalized understanding Electronically signed by: Arina Desir, PT, DPT Please sign and return to therapist. Thank you for your referral.
--- NOTE | 2024-06-22 14:46 | MHC.PT.DC ---
[facility] [place] Office [place] Office [place] Office [address] Ninfa Hammonds [address] [phone] F: [phone] F: [phone] F: [phone] F: [phone] Physical Therapy Discharge Report Diagnosis: BPPV Date of Surgery: Date of Evaluation: 05/17/24 Date of Discharge: 06/22/24 Treatments to Date: 1 Cancellations to Date: No Shows to Date: Discharge Status: Discharge Summary: Pt was evaluated for PT on 05/17/24. At time of evaluation he was negative for BPPV. His balance assessment was normal and he scored a 24/24 on Dynamic Gait Assessment. No PT was indicated at time of PT eval. I discussed with pt that I would leave his chart open for 30 days in case he had recurrence of symptoms. Pt is being D/C from skilled PT as he has not attended or called to schedule in > 30 days. Pt current level of function unknown at this time From PT assessment on 05/17/24: Pt is a pleasant 44yo M who presents to PT with diagnosis of BPPV. Pt was seen at [facility] ER on 04/23/24 due to dizziness. He was treated with Mikayla maneuver x 1 rep and was also prescribed medication. Upon assessment today, pt tested negative for BPPV in B posterior and horizontal canals. His balance assessment was normal. He scored 24/24 on Dynamic Gait Index assessment. He ambulates independently with steady gait. He had no dizziness throughout his evaluation today. No PT indicated at this time. I discussed with pt if his symptoms return I will keep his chart open for 30 days so he can schedule an appointment to be reassessed as needed, pt verbalized understanding Electronically signed by: Arina Desir, PT, DPT Please sign and return to therapist. Thank you for your referral.
== END 2024-06-22 14:41 | disposition home or self-care (01) ==
LOC: HO.PT 14:50
PROVIDERS: PCP Family Medicine; Visit Provider Family Medicine
DX: H81.10 Benign paroxysmal vertigo, unspecified ear (principal)
CPT/HCPCS: 97161

== ENCOUNTER 2024-07-06 08:19 | Outpatient (AMB) | payer OTHER, SELFPAY ==
--- NOTE | 2024-07-06 08:31 | A.OFFPC_ITS ---
Vital Signs 07/06/24 08:32 Height 5 ft 10 in Weight 276 lb 8 oz BMI 39.7 BP 128/88 Blood Pressure Location Lt brachial Position Sitting Respiration 16 Pulse 81 Pulse Source Pulse Oximeter Temp 98.0 F Temp Source Oral Pulse Oximetry (%) 96 Oxygen Delivery Method Room Air Intake Visit Reasons: Recurring episodes of vertigo/tinnitus Intake Note: f/u up for ear discomfort and dizziness Allergies No Known Allergies Allergy (Verified 07/06/24 08:32) Tobacco use date assessed: 05/07/23 HPI Recurring episodes of vertigo/tinnitus HPI Details 44 y/o male presents today to f/u ED vis it for dizzines/vomiting, 04/23/24. Suspected BPPV. Head CT without acute pathology. CT angio without vascular pathology. Had made referral to physical therapy. 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 Hearing needs: No Vision needs: No Questionnaire Thrive Questionnaire Date Thrive assessed: 10/08/23 I am a: Patient What is your living situation today?: I choose not to answer this question Within the past 12 months, did the food you bought not last and you didn't have the money to get more?: I choose not to answer this question Within the past 12 months, did you worry whether your food would run out before you got money to buy more?: I choose not to answer this question Do you have trouble paying for medicines?: I choose not to answer this question Do you have trouble getting transportation to medical appointments?: I choose not to answer this question Do you have trouble paying your heating and electricity bill?: I choose not to answer this question Do you have trouble taking care of your child, family member or friend?: I choose not to answer this question Do you have trouble with day-to-day activities such as bathing, preparing meals, shopping, managing finances, etc.?: I choose not to answer this question Are you currently unemployed and looking for a job?: I choose not to answer this question Are you interested in more education?: I choose not to answer this question Please select the resources that you would like help with: None Currently or been in a relationship where the following occur: I choose not to answer THRIVE Score: 0 AUDIT C Alcohol Use Questionnaire (AUDIT-C) 1. How often do you have a drink containing alcohol?: Monthly or less 2. How many drinks containing alcohol do you have on a typical day when you are drinking?: 1 or 2 3. How often do you have six or more drinks on one occasion?: Never Total Score: 1 OJ-7 AMB Questionnaire OJ-7 Date OJ - 7 assessed: 10/08/23 Feeling nervous, anxious, or on edge: 0 = Not at all Not being able to stop or control worryin = Not at all Worrying too much about different things: 0 = Not at all Trouble relaxin = Not at all Being so restless that it is hard to sit still: 0 = Not at all Becoming easily annoyed or irritable: 0 = Not at all Feeling afraid as if something awful might happen: 0 = Not at all Total OJ-7 score (0-4 normal; 5-9 mild; 10-14 moderate; 15-21 severe): 0 Source: Developed by Drs. Joaquim Fox, Theresa Morales, Travis Gamble and colleagues, with an educational buddy from [employer]. Review of Systems Const Denies chills, Denies fatigue, Denies fever(s), Denies headache(s) and Denies weakness ENT Reports dizziness and Denies headache(s) Card Denies dyspnea Resp Denies cough, Denies dyspnea, Denies wheezing and Denies other (shortness of breath) Musc Denies numbness and Denies tingling Neuro Reports dizziness, Denies headache(s), Denies numbness, Denies tingling and Denies weakness Psych Denies anxiety and Denies depression Endo Denies fatigue Aller/Immun Denies wheezing Physical exam (Primary Care) Vital Signs: Last Vital Signs Temp 98.0 F 07/06/24 08:32 Pulse 81 07/06/24 08:32 Resp 16 07/06/24 08:32 BP 128/88 07/06/24 08:32 Pulse Ox 96 07/06/24 08:32 Oxygen Delivery Method Room Air 07/06/24 08:32 BMI result Body Mass Index 39.7 Tobacco/Smoking Status: Tobacco use Status Tobacco use date assessed 05/07/23 07/06/24 08:35 Patient Tobacco Use Status Never used Tobacco 07/06/24 08:35 e-Cigarette/Vaping Use Never Used 07/06/24 08:35 Thrive Assessment: Date of Thrive Assessment Date Thrive assessed 10/08/23 07/06/24 08:35 Currently or been in a relationship where the following occur: I choose not to answer Const General: well developed; No acute distress Nutritional Appearance: well nourished Orientation/consciousness: patient oriented x3 HENMT Head: Yes normocephalic and Yes atraumatic Eyes General: appearance normal, both eyes and all related structures Pupils: Equal, round and reactive pupils present EOM: EOMs intact bilaterally Resp Effort & Inspection: normal respiratory effort Neuro General: patient oriented x3 and gait normal Cranial nerves: Yes Equal, round and reactive pupils present Psych Affect: normal affect Coding Level of Care Code Est Pt Level 3 (14658) Diagnoses Vertigo R42 Assessment & Plan Assessment & Plan (1) Vertigo: Code(s): R42 - Dizziness and giddiness Category: Medical Plan: Patient?returns?to?follow-up?vertigo Had?initially?been?seen?at?the?ED?for?vertigo?and?Mikayla?maneuver?was?performed He?had?feeling?better?since?then. I?had?referred?patient?to?physical?therapy?but?at?that?visit?he?did?not?have?any ?symptoms. They?have?discharge?him?but?not?closed?his?referral?for?the?next?30?days?in?case ?symptoms?return. Recently,?patient?notes?that?some?of?his?symptoms?have?returned.??He?also?has?so me?left-sided?ear?congestion?and?nasal?congestion. Will?give?him?a?script?for?a?Z-Santos?as?well?as?a?nasal?steroid Advised?him?to?follow- up?with?physical?therapy?regarding?vestibular?rehab?as?referral?has?not?closed?y et. He?has?an?appointment?with?cardiology?due?to?frequent?PVCs. Medications: New fluticasone propionate 50 mcg/actuation (Flonase Allergy Relief) administer into each nostril 1 spray intranasal Q12H 30 days 16 grams 2RF azithromycin (Zithromax Z-Santos) take 500 mg today (day 1), then 250 mg for 4 days (days 2-5) PO 5 days 6 tabs 0RF
[2024-07-06 08:32] VITALS: BP 128/88; PULSE 81; RESP 16; TEMP 36.7; O2SAT 96; BMI 39.7
== END 2024-07-06 09:04 | disposition home or self-care (01) ==
PROVIDERS: PCP Family Medicine; Visit Provider Family Medicine
DX: R42 Dizziness and giddiness (principal)

== ENCOUNTER → 2024-07-06 08:19 | Outpatient (BNVA) | payer OTHER, SELFPAY | PROVIDERS: PCP Family Medicine; Visit Provider Family Medicine ==

== ENCOUNTER 2024-08-25 14:23 | Outpatient (AMB) | payer OTHER, SELFPAY ==
[2024-08-25 14:28] VITALS: BP 140/100; PULSE 106; BMI 38.6
--- NOTE | 2024-08-25 14:28 | A.OFFVIS_ITS ---
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 Apparently, he had a hospitalization in the past for vertigo and during that time, PVCs were detected. Subsequently, evaluated through his own PCP, has had EKGs/Holter monitor. Patient himself has occasional palpitations which could be from his PVCs but no other cardiac symptoms. He is morbidly obese. No known cardiac issues including cardiomyopathy or coronary disease. However, there is family history of coronary disease in both mother and father. [facility] Medical History Teeth grinding Cervical radiculopathy GERD (gastroesophageal reflux disease) Dysphagia Hiatal hernia Elevated cholesterol Surgical History History of hip surgery History of esophagogastroduodenoscopy (EGD) Family History (Updated 08/25/24 @ 14:46 by Susan Maria) Mother Atrial fibrillation, persistent Father Heart attack Social History (Updated 08/25/24 @ 14:46 by Susan Maria) Household Members Other:: Housing: Apartment Alcohol intake: never Patient Tobacco Use Status: Never used Tobacco e-Cigarette/Vaping Use: Never Used service: No Current occupational status: 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 Hearing needs: No Vision needs: No Female Reproductive History Other: Review of Systems Const Denies weakness ENT Denies dizziness Card Denies chest pain, Denies chest pain with activity, Denies syncope, Denies rapid heart rate, Denies pedal edema, Denies edema, Denies leg edema, Denies lightheadedness, Reports palpitations, Denies dyspnea, Denies dyspnea on exertion and Denies orthopnea Resp Denies cough, Denies dyspnea and Denies dyspnea on exertion GI Denies hematochezia and Denies change in stool character Musc Denies abnormal gait, Denies muscle cramps, Denies muscle weakness, Denies numbness, Denies radiating pain into limb and Denies tingling Neuro Denies abnormal gait, Denies dizziness, Denies syncope, Denies numbness, Denies tingling and Denies weakness Endo Reports palpitations Physical Exam Vital Signs: Last Vital Signs Pulse 106 H 08/25/24 14:28 BP 140/100 H 08/25/24 14:28 BMI result Body Mass Index 38.6 Const General: comfortable and no acute distress Orientation/consciousness: patient oriented x3 HEENT Other: Unremarkable Head: Yes normal to inspection Neck Neck: Yes normal visual inspection Chest Chest palpation & inspection: normal inspection of the chest Resp Auscultation: clear to auscultation bilaterally Cardio Palpation: normal PMI Heart sounds: S1 normal heart sound present, S2 normal heart sound present, no gallops, no murmurs and no rubs GI Palpation (GI): Soft to palpation Back/Spine/Pelvis Other: unremarkable Skin General skin exam: no rashes or lesions noted Neuro General: patient oriented x3 Extrem General: Yes normal to inspection Psych Mental Status: mental status grossly normal Office Procedures EKG Details: EKG with sinus tachycardia at 01:06/Min; nonspecific ST-T changes in the inferior and anterolateral [place]. 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 Holter monitor shows underlying sinus rhythm with an average rate of 74/Min. PVCs with a burden of about 4%. Findings discussed with patient and family. Obtain further workup with echocardiogram for cardiomyopathy. Coronary CTA to evaluate for any underlying CAD. We will also get a home sleep study for NATY assessment. Follow-up after the above. They are in agreement with plan. Orders: Orders CT Cardiac Coronary Angio Today I25.10 - Atherosclerotic heart disease of [place] coronary artery without angina pectoris, I49.3 - Ventricular premature depolarization RT home sleep study Today G47.33 - Obstructive sleep apnea (adult) (pediatric) CA echo transthoracic complete Today I49.3 - Ventricular premature depolarization Coding Level of Care Code New Pt Level 4 (11600) Diagnoses Frequent PVCs I49.3 Morbid obesity E66.01 CPT Codes EKG - CPT: 86186-[id number], Complete ([id number])
== END 2024-08-25 15:10 | disposition home or self-care (01) ==
PROVIDERS: PCP Family Medicine; Visit Provider Internal Medicine
DX: I49.3 Ventricular premature depolarization (principal); E66.01 Morbid (severe) obesity due to excess calories
CPT/HCPCS: 93010; 99204

== ENCOUNTER → 2024-08-25 14:23 | Outpatient (BNVA) | payer OTHER, SELFPAY | PROVIDERS: PCP Family Medicine; Visit Provider Internal Medicine | DX: I49.3 Ventricular premature depolarization (principal); E66.01 Morbid (severe) obesity due to excess calories; Z68.38 Body mass index [BMI] 38.0-38.9, adult | CPT/HCPCS: 93005 ==

== ENCOUNTER → 2024-09-01 12:47 | Outpatient (REF) | payer OTHER, SELFPAY ==
--- NOTE | 2024-09-01 12:49 | CA_ITS ---
Transthoracic Echocardiogram Patient (Last, First, Middle): Tyshawn Liriano R Gender: Male Date of : 1980 Age: 44 Procedure Date: 09/01/2024 Procedure Type: Transthoracic Echocardiogram Location: OP Height: 177.8 cm Weight: 122.47 kg BSA: 2.37 m2 Heart Rate: 73 bpm BP: 155 / 80 mmHg Transmission Rebuilder: ROBERTO Chawla MD: Rao Hughes MD Veterinary Milk Specialist: Castillo Gan MD Symptoms: I49.3 - Ventricular premature depolarization Study Quality: Fair ECG Rhythm: Sinus Conclusions: - Normal study Findings Left Ventricle Normal left ventricular size, thickness, and systolic function. The visually estimated ejection fraction is between 60-65%. Spectral Doppler is indicative of a normal filling pattern. Right Ventricle Normal right ventricular cavity size and systolic function. Atria Both atria are normal in size. Aortic Valve Normal aortic valve structure and function. There is no aortic valve stenosis. There is no aortic valve regurgitation. Mitral Valve Normal mitral valve structure and function. There is trace mitral valve regurgitation. There is no mitral valve stenosis. Pulmonic Valve The pulmonic valve is likely normal. Tricuspid Valve Normal tricuspid valve structure. There is trace tricuspid valve regurgitation. The right ventricular systolic pressure is normal. The right ventricular systolic pressure is 25 mmHg. Normal right atrial pressure. There is no evidence of pulmonary hypertension. Great Vessels All visible segments of the aorta are normal in size. The pulmonary artery was not well visualized. Venous The inferior vena cava is normal in size and collapses greater than 50% with inspiration. Pericardium/Pleural There is no evidence of pericardial effusion. Prior Study Comparison No prior study available for comparison. Measurements 2D Linear Measurements IVSd: 0.81 0.6-0.9/0.6-1.0 cm LVIDd: 3.90 3.9-5.3/4.2-5.9 cm LVIDd Index: 1.65 2.4-3.2/2.2-3.1 cm/m2 LVIDs: 2.56 2.0-3.6 cm LVPWd: 0.91 0.7-1.1 cm LA Diam: 2.70 2.7-3.8/3.0-4.0 cm LAIDs Index: 1.14 1.5-2.3 cm/m2 LV Mass: 219.98 67-162/88-224 g LV Mass Index: 92.82 43-95/49-115 g/m2 LVOT Diam: 2.20 3.0+(-)1.3 cm 2D Systolic Function EF 4C: 63.90 >55% EF 2C: 68.20 >55% EF BiP: 64.80 >55% Mitral Valve MV Pk E: 1.18 MV PK A: 0.78 MV Decel Time: 234.00 E/A: 1.50 E'Lateral: 10.80 E'Medial: 9.90 E/E' Med: 11.90 E/E' Lat: 10.90 PHT: 68.00 MVA PHT: 3.24 Decel Sharp: 5.05 Aortic Valve AoV Pk Pio: 1.44 AoV Mn Pio: 1.05 AoV VTI: 0.31 AoV Pk Grad: 8.00 Aov Mn Grad: 5.00 JASMINE Cont.VTI: 2.87 LVOT LVOT Pk Pio: 1.14 LVOT Mn Pio: 0.78 LVOT VTI: 0.23 LVOT Pk Grad: 5.00 LVOT Mn Grad: 3.00 LVOT Diam: 2.20 LVOT Area: 3.80 Diastolic Function MV Pk E: 1.18 MV Pk A: 0.78 E/A: 1.50 E'Medial: 9.90 E/E' Med: 11.90 E' Laterial: 10.80 E/E' Lat: 10.90 Right Ventricle TAPSE (mm): 19.40 TVS' Pio: 11.10 Tricuspid Valve TR Pk Pio: 2.34 TR Pk Grad: 22.00 RA Press: 3.00 RVSP: 25.00 Great Vessels Aorta Sinus of Valsalva: 3.60 2.0-3.5 cm Ao Asc: 3.50 2.1-3.4 cm Pulmonary Valve PV Pk Pio: 1.17 Peak PV Grad: 5.00 Updated in Other Vendor System with Status of Final Castillo Gan MD electronically signed on 09/02/2024 2:50:58 PM with status of Final
== END ==
LOC: HO.CARD 12:47
PROVIDERS: PCP Family Medicine; Visit Provider Internal Medicine
DX: I49.3 Ventricular premature depolarization (principal)
CPT/HCPCS: 93306

== ENCOUNTER → 2024-09-01 12:49 | Outpatient (BNV) | payer OTHER, SELFPAY | PROVIDERS: PCP Family Medicine; Visit Provider Internal Medicine Cardiovascular Disease | DX: R94.31 Abnormal electrocardiogram [ECG] [EKG] (principal) | CPT/HCPCS: 93306 ==

== ENCOUNTER 2024-09-27 15:39 | Outpatient (AMB) | payer OTHER, SELFPAY ==
--- NOTE | 2024-09-27 15:49 | A.OFFPC_ITS ---
Vital Signs 09/27/24 15:54 Height 5 ft 10 in Weight 280 lb 8 oz BMI 40.2 BP 154/80 H Blood Pressure Location Rt brachial Position Sitting Respiration 14 Pulse 74 Pulse Source Pulse Oximeter Temp 98.0 F Temp Source Oral Pulse Oximetry (%) 98 Oxygen Delivery Method Room Air Intake Visit Reasons: CPE with f/u labs and health maint. Intake Note: CPE Allergies No Known Allergies Allergy (Verified 09/27/24 15:52) Medication List - Last Reconciled 09/27/24 by Rodney Keeys MD atorvastatin 20 mg PO BEDTIME 30 days fluticasone propionate 50 mcg/actuation (Flonase Allergy Relief) 1 spray intranasal Q12H 30 days metoprolol succinate ER 12.5 mg (1/2 x 25 mg) PO DAILY 30 days minoxidil 5% (Daylogic Minoxidil) 1 ea topical DAILY 30 days omeprazole 20 mg PO DAILY sildenafil 50 mg PO DAILY PRN 30 days Tobacco use date assessed: 05/07/23 HPI CPE with f/u labs and health maint. HPI Details 44 y/o male presents for a CPE with f/u labs and health maintenance. No recent labs to review. Blood pressure today 154/80, 74p. He is on metoprolol 12.5mg daily - hx of frequent PVCs and has been following up with Cardiology. Weight had increased since last office visit - 268 lbs to 280 lbs. Up to date with his health maintenance. Denies any FHx of colon polyps. [facility] Medical History Teeth grinding Cervical radiculopathy GERD (gastroesophageal reflux disease) Dysphagia Hiatal hernia Elevated cholesterol Surgical History History of hip surgery History of esophagogastroduodenoscopy (EGD) Family History (Updated 08/25/24 @ 14:46 by Susan Maria) Mother Atrial fibrillation, persistent Father Heart attack Social History (Updated 08/25/24 @ 14:46 by Susan Maria) Household Members Other:: Housing: Apartment Alcohol intake: never Patient Tobacco Use Status: Never used Tobacco e-Cigarette/Vaping Use: Never Used service: No Current occupational status: 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 Hearing needs: No Vision needs: No Questionnaire Thrive Questionnaire Date Thrive assessed: 07/06/24 I am a: Patient What is your living situation today?: I choose not to answer this question Within the past 12 months, did the food you bought not last and you didn't have the money to get more?: I choose not to answer this question Within the past 12 months, did you worry whether your food would run out before you got money to buy more?: I choose not to answer this question Do you have trouble paying for medicines?: I choose not to answer this question Do you have trouble getting transportation to medical appointments?: I choose not to answer this question Do you have trouble paying your heating and electricity bill?: I choose not to answer this question Do you have trouble taking care of your child, family member or friend?: I choose not to answer this question Do you have trouble with day-to-day activities such as bathing, preparing meals, shopping, managing finances, etc.?: I choose not to answer this question Are you currently unemployed and looking for a job?: I choose not to answer this question Are you interested in more education?: I choose not to answer this question Please select the resources that you would like help with: None Currently or been in a relationship where the following occur: I choose not to answer THRIVE Score: 0 AUDIT C Alcohol Use Questionnaire (AUDIT-C) 1. How often do you have a drink containing alcohol?: Monthly or less 2. How many drinks containing alcohol do you have on a typical day when you are drinking?: 1 or 2 3. How often do you have six or more drinks on one occasion?: Never Total Score: 1 OJ-7 AMB Questionnaire OJ-7 Date OJ - 7 assessed: 10/08/23 Feeling nervous, anxious, or on edge: 1 = Several days Not being able to stop or control worryin = Several days Worrying too much about different things: 1 = Several days Trouble relaxin = Several days Being so restless that it is hard to sit still: 0 = Not at all Becoming easily annoyed or irritable: 1 = Several days Feeling afraid as if something awful might happen: 1 = Several days Total OJ-7 score (0-4 normal; 5-9 mild; 10-14 moderate; 15-21 severe): 6 Source: Developed by Drs. Joaquim Fox, Theresa Morales, Travis Gamble and colleagues, with an educational buddy from [employer]. Review of Systems Const Denies chills, Denies fatigue, Denies fever(s), Denies headache(s) and Denies weakness Eyes Denies change in vision ENT Denies dizziness, Denies headache(s), Denies hearing loss, Denies nasal congestion, Denies sinus pain, Denies sinus pressure and Denies sore throat Card Denies chest pain, Denies lightheadedness, Denies dyspnea and Denies other (palpitations) Resp Denies cough, Denies dyspnea and Denies wheezing GI Denies abdominal pain, Denies melena, Denies hematochezia, Denies change in bowel habits, Denies dyspepsia and Denies nausea Denies hematuria and Denies dysuria Musc Denies abnormal gait, Denies myalgias, Denies arthralgias, Denies numbness and Denies tingling Skin/Breast Denies rash, Denies unusual bruising and Denies wounds Neuro Denies abnormal gait, Denies dizziness, Denies headache(s), Denies memory loss, Denies numbness, Denies Sensory deficit (Neuro), Denies tingling and Denies weakness Psych Denies anxiety, Denies depression and Denies memory loss Endo Denies cold intolerance, Denies fatigue, Denies heat intolerance, Denies polydipsia and Denies polyuria Don/Lymph Denies easy bleeding and Denies easy bruising Aller/Immun Denies wheezing Physical exam (Primary Care) Vital Signs: Last Vital Signs Temp 98.0 F 09/27/24 15:54 Pulse 74 09/27/24 15:54 Resp 14 09/27/24 15:54 BP 154/80 H 09/27/24 15:54 Pulse Ox 98 09/27/24 15:54 Oxygen Delivery Method Room Air 09/27/24 15:54 BMI result Body Mass Index 40.2 Tobacco/Smoking Status: Tobacco use Status Tobacco use date assessed 05/07/23 09/27/24 15:50 Patient Tobacco Use Status Never used Tobacco 09/27/24 15:50 e-Cigarette/Vaping Use Never Used 09/27/24 15:50 Thrive Assessment: Date of Thrive Assessment Date Thrive assessed 07/06/24 09/27/24 15:50 Currently or been in a relationship where the following occur: I choose not to answer Const General: no acute distress, well developed, alert and awake Nutritional Appearance: obese morbidly obese Orientation/consciousness: patient oriented x3 HENMT Head: Yes normocephalic and Yes atraumatic Ears: hearing grossly normal bilaterally and TM's normal bilaterally General nose exam: Normal external nose present and Normal nares present Mouth: Normal oral and palatal mucosa present and moist mucous membranes Teeth and gingiva: dentition normal Throat: Yes posterior oropharynx normal Eyes General: appearance normal, both eyes and all related structures Pupils: Equal, round and reactive pupils present and Pupil accommodation reflex normal EOM: EOMs intact bilaterally Neck Neck: Yes normal visual inspection, Yes no lymphadenopathy and Yes trachea midline Thyroid: Thyroid normal Carotids: no bruits Lymphatic: no lymphadenopathy noted Chest Chest palpation & inspection: normal inspection of the chest Resp Effort & Inspection: normal respiratory effort Auscultation: clear to auscultation bilaterally Cardio Rate: regular rate Rhythm: regular rhythm Heart sounds: S1 normal heart sound present, S2 normal heart sound present, no gallops, no murmurs and no rubs Bruits: no abdominal aortic bruits and no carotid bruits GI Palpation (GI): No Abdominal aortic bruit present, Soft to palpation, nontender, No hepatosplenomegaly present and No Rebound tenderness present Auscultation: normal bowel sounds General: Yes no CVA tenderness Back/Spine/Pelvis Back: no CVA tenderness Cervical Spine: cervical ROM normal and No Cervical spine tenderness Thoracic/Lumbar Spine: thoraco-lumbar ROM normal, No pain with thoraco-lumbar ROM, No thoracic spinal tenderness and No lumbar spinal tenderness Skin Lesions: no lesions Rashes: no rashes Trauma: no lacerations or abrasions Wounds: no wounds Nails: normal Neuro General: patient oriented x3 Cranial nerves: Yes Equal, round and reactive pupils present Cognition (Neuro): normal cognition Gait exam (Neuro): Normal gait present Motor exam (neuro): 5/5 motor strength present throughout Sensory Exam: No Sensory deficit (Neuro) Deep tendon reflexes (DTR's): Right patellar reflex intensity grade: 2+ and Left patellar reflex intensity grade: 2+ Extrem General: Yes normal to inspection and No edema Psych Appearance: grossly normal Affect: normal affect Attitude: cooperative Thought process: Normal thought process present Coding Level of Care Code Est Pt Level 3 (64103) Est Pt Prev Care 40-64y(84057) Diagnoses Adult general medical exam Z00.00 Hypertension I10 Frequent PVCs I49.3 Morbid obesity E66.01 Hyperlipidemia E78.5 Screening for prostate cancer Z12.5 Assessment & Plan Assessment & Plan (1) Adult general medical exam: Code(s): Z00.00 - Encounter for general adult medical examination without abnormal findings Category: Medical Plan: 44-year-old?male?presents?for?complete?physical?exam Encouraged?healthy?diet?with?active?lifestyle?and?plenty?of?exercise (2) Hypertension: Code(s): I10 - Essential (primary) hypertension Category: Medical Plan: Blood?pressure?is?too?high.??Goal?is?less?than?140/90 Continue?metoprolol?as?prescribed Will?add?hydrochlorothiazide Advised?weight?loss (3) Frequent PVCs: Code(s): 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 Currently?those?medications?may?not?be?covered?by?his?insurance. Will?try?to?send?Ozempic?as?patient?requests. We?discussed?if?additional?indications?arise we could?send?ammend script. (eg patient?has?workup?for?sleep?apnea?pending) Also?checking?A1c (5) Hyperlipidemia: Code(s): E78.5 - Hyperlipidemia, unspecified Category: Medical Plan: Taking?atorvastatin Recheck?lipids?with?next?lab?draw (6) Screening for prostate cancer: Code(s): Z12.5 - Encounter for screening for malignant neoplasm of prostate Category: Medical Plan: PSA?ordered Plan We?also?discussed?that?he?is?due?for?colonoscopy?next?year Orders: Orders Microalbumin, Random (w Creat) Today I10 - Essential (primary) hypertension Prostate Specific Antigen Scr Today Z12.5 - Encounter for screening for malignant neoplasm of prostate UA and rflx microscopic Today Z00.00 - Encounter for general adult medical examination without abnormal findings Comprehensive [place]. Panel Fast Today I10 - Essential (primary) hypertension, Z00.00 - Encounter for general adult medical examination without abnormal findings Hemoglobin A1c Today E66.01 - Morbid (severe) obesity due to excess calories, R73.01 - Impaired fasting glucose TSH reflex Free T4 Today E66.01 - Morbid (severe) obesity due to excess calories, Z00.00 - Encounter for general adult medical examination without abnormal findings Medications: New hydrochlorothiazide 25 mg PO QAM 90 days 90 tabs 3RF
[2024-09-27 15:54] VITALS: BP 154/80; PULSE 74; RESP 14; TEMP 36.7; O2SAT 98; BMI 40.2
--- OUTSIDE RECORDS SUMMARY | 2024-09-27 16:14 | XMS_ITS | Clinical Summary ---
Author Organization [facility] Address [address] [place] [address] Care Team Providers Care Administration Manager Name Role Phone Alexia Ortiz KIET Primary Care Provider [phone] Source Comments PLEASE NOTE, if this patient is a minor, it may be UNLAWFUL to discuss sensitive information that is contained in these records (such as FAMILY PLANNING, MENTAL HEALTH or SUBSTANCE ABUSE) with the minor patient's parent or other person without the patient's specific authorization.[facility] Allergies No known active allergies Medications cholecalciferol, vitamin D3, 400 unit tabletIndications: Vitamin D deficiency Take 2 Tabs by mouth once daily 60 Tab 11 9 Active fish oil-dha-epa 1,200-144-216 mg per capsuleIndications :High triglycerides Take 1 Cap by mouth 3 (three) times daily 90 Cap 11 9 Active omeprazole (PRILOSEC) [address] capsuleIndications :Gastroesophageal reflux disease, esophagitis presence not specified Take 1 Cap by mouth every morning before breakfast 30 Cap 9 Active atorvastatin (LIPITOR) 10 mg tabletIndications: Dyslipidemia TAKE 1 TABLET BY MOUTH EVERY DAY 30 Tab 3 9 Active venlafaxine (EFFEXOR) 37.5 mg tabletIndications: Depression, unspecified depression type TAKE 1 TABLET BY MOUTH EVERY DAY 30 Tab 3 0 Active Active Problems Problem Noted Date Diagnosed Date 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 Pt on chr PPI. Also had Barium swallow in the past. Depression 04/13/2017 Resolved Problems Problem Noted Date Diagnosed Date Resolved Date Prediabetes 08/30/2018 02/18/2019 Numbness and tingling in right hand 08/30/2018 02/18/2019 Left shoulder pain 08/30/2018 9 ED (erectile dysfunction) 04/13/2017 Immunizations Name Administration Dates Next Due Flu, Preservative Free 08/30/2018 INFLUENZA, SEASONAL, INJECTABLE 05/25/2013,08/02 INFLUENZA, SEASONAL, INJECTABLE, PRESERVATIVE FR EE 05/26/2017 TDAP 02/18/2019 Family History Medical History Relation Name Comments Diabetes Father Heart Problems Father SC Cancer Maternal Grandfather Cancer Maternal Grandmother breast CA Diabetes Mother Heart failure Paternal Grandfather Heart Problems Paternal Grandmother Relation Name Status Comments Father Alive Maternal Grandfather Maternal Grandmother Mother Alive Paternal Grandfather Paternal Grandmother Social History Tobacco Use Types Packs/Day Years Used Date Smoking Tobacco: Never Smokeless Tobacco: Never Tobacco Cessation:Counseling Given: Yes Alcohol Use Standard Drinks/Week Comments No 0 (1 standard drink = 0.6 oz pur e alcohol) Social Connections Answer Date Recorded Connectedness 0 2024 Financial Resource Strain Answer Date R ecorded Financial Resource Strain 0 2018 Stress Answer Date Recorded Stress 0 04/10/2019 Physical Activity Answer Date Recorded Physical Activity 0 04/10/2019 Food Insecurity Answer Date Recorded Food 0 05/12/2024 Transportation Needs Answer Date Record ed Transportation 0 04/10/2019 Housing Stability Answer Date Recorded Housing 0 04/10/2019 Safety and Environment Answer Date Logan rded Safety 0 10/20/2018 Utilities Answer Date Recorded Utilities 0 04/10/2019 Employment Answer Date Recorded Employment 0 04/10/2019 Sex and Gender Information Value Date Recorded Sex Assigned at Male 05/26/2017 11:34 AM PDT Legal Sex Male 11:26 AM PDT Gender Identity Male 05/26/2017 11:34 AM PDT Sexual Orientation Straight 05/26/2017 11 :34 AM PDT 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 Not on file Not on file Last Filed Vital Signs Vital Sign Reading Time Taken Comments Blood Pressure 130/70 02/18/2019 3:39 PM EDT Pulse 84 02/18/2019 3:39 PM EDT Temperature 37.1 ??C (98.8 ??F) 02/18/2019 3:39 PM ED T Respiratory Rate 16 02/18/2019 3:39 PM EDT Oxygen Saturation 97% 02/18/2019 3:39 PM EDT Inhaled Oxygen Concentration - - Weight 117.9 kg (260 lb) 02/18/2019 3:39 PM EDT Height 176 cm (5' 9.29 ) 02/18/2019 3:39 PM EDT Body Mass Index 38.07 02/18/2019 3:39 PM EDT Plan of Treatment Not on file Insurance [employer] [facility] Care Teams Administration Manager Relationship Specialty Start Date End Date Alexia Ortiz FNP [address] [place] [address] PCP - General Internal Medicine 08/30/18
--- OUTSIDE RECORDS SUMMARY | 2024-09-27 16:14 | XMS_ITS | Clinical Summary ---
Author Organization [facility] it[facility] Address [address] [place] [address] Care Team Providers Care Bus Assistant Name Role Phone Unavailable Primary Care Provider Unavailabl e Social History Tobacco Use Types Packs/Day Years Used Date Smoking Tobacco: Never Assessed Sex and Gender Information Value Date Recorded Sex Assigned at Not on file Legal Sex Male 6:22 PM EST Gender Identity Not on file Sexual Orientation Not on file Plan of Treatment Health Maintenance Due Date Last Done Comments DTaP,Tdap,and Td Vaccines (1 - Tdap) 1999 Hepatitis B Vaccines (1 of 3 - 19+ 3-dose series) 1999 COVID-19 Vaccine (2023-2 5 season) 2024 Influenza Vaccine (#1) 2024 HIB Vaccines Aged Out No longer eligi ble based on patient's age to complete this topic HPV Vaccines Aged Out No longer eligi ble based on patient's age to complete this topic Hepatitis A Vaccines Aged Out No long er eligible based on patient's age to complete this topic IPV Vaccines Aged Out No longer eligi ble based on patient's age to complete this topic MMR Vaccines Aged Out No longer eligi ble based on patient's age to complete this topic Meningococcal ACWY Vaccine Aged Out N o longer eligible based on patient's age to complete this topic Pneumococcal Vaccine: Pediat rics (0 to 5 Years) and At-Risk Patients (6 to 64 Years) Aged Out No longer eligible b ased on patient's age to complete this topic RSV Immunization Patients Un dedra 20 months Aged Out No longer eligible b ased on patient's age to complete this topic Varicella Vaccines Aged Out No longer eligible based on patient's age to complete this topic
== END 2024-09-27 16:31 | disposition home or self-care (01) ==
PROVIDERS: PCP Family Medicine; Visit Provider Family Medicine
DX: Z00.00 Encounter for general adult medical examination without abnormal findings (principal); I10 Essential (primary) hypertension; E66.01 Morbid (severe) obesity due to excess calories; Z68.41 Body mass index [BMI] 40.0-44.9, adult; I49.3 Ventricular premature depolarization; E78.5 Hyperlipidemia, unspecified; Z12.5 Encounter for screening for malignant neoplasm of prostate

== ENCOUNTER → 2024-09-27 15:39 | Outpatient (BNVA) | payer OTHER, SELFPAY | PROVIDERS: PCP Family Medicine; Visit Provider Family Medicine ==

== ENCOUNTER 2024-09-29 07:38 | Outpatient (REF) | payer OTHER, SELFPAY ==
--- OUTSIDE RECORDS SUMMARY | 2024-09-29 07:40 | XMS_ITS | Clinical Summary ---
Author Organization [facility] ity Address [address] [place] [address] Care Team Providers Care Medical Office Secretary Name Role Phone Unavailable Primary Care Provider [...]
--- OUTSIDE RECORDS SUMMARY | 2024-09-29 07:40 | XMS_ITS | Clinical Summary ---
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
[2024-09-29 08:23] LABS: Appearance Urine Clear; Color Urine Yellow; Glucose Urine UA Negative (Negative); Leukocyte Esterase Urine Negative (Negative); Nitrite Urine Negative (Negative); Specific Gravity - Urine 1.015 (1.005-1.025); Urine Blood Negative (Negative); Urine Ketones Negative (Negative); Urine Protein Negative (Neg-Trace)
[2024-09-29 08:26] LABS: Estimated Average Glucose 105 mg/dL; Hemoglobin A1C 118.9601 umol/L; Hemoglobin A1c % 5.3 % (<6.0); Total Hemoglobin (HGBA1C) 3490.7353 umol/L
[2024-09-29 08:48] LABS: Alanine Aminotransferase 38 U/L (0-40); Albumin Level 4.3 g/dL (3.5-5.0); Alkaline Phosphatase 72 U/L (39-117); Anion Gap 12 (12-20); Aspartate Amino Transferase 24 U/L (5-37); Bilirubin Total 0.4 mg/dL (0.0-1.0); Blood Urea Nitrogen 10 mg/dL (9-16); Calcium 9.3 mg/dL (8.4-10.2); Carbon Dioxide 24 mmol/L (22-29); Chloride 110 mmol/L (96-108); Estimated Glomerular Filt Rate > 60; Glucose Fasting 97 mg/dL (60-99); Sodium 142 mmol/L (135-145); Total Protein 7.1 g/dL (6.5-8.0)
[2024-09-29 08:59] LABS: Prostate Specific Antigen Scr 0.47 ng/mL (<0.05-4.0)
[2024-09-29 09:04] LABS: TSH reflex Free T4 1.19 uIU/mL (0.32-4.0)
[2024-09-29 09:41] LABS: Creatinine Urine 113.26 mg/dL; Microalbumin Urine < 5.0 mg/L
== END 2024-09-29 07:39 | disposition home or self-care (01) ==
LOC: HO.LAB 07:38
PROVIDERS: PCP Family Medicine; Visit Provider Family Medicine
DX: Z00.00 Encounter for general adult medical examination without abnormal findings (principal); I10 Essential (primary) hypertension; R73.01 Impaired fasting glucose; E66.01 Morbid (severe) obesity due to excess calories; Z12.5 Encounter for screening for malignant neoplasm of prostate
CPT/HCPCS: 36415; 80053; 81003; 82043; 82570; 83036; 84153; 84443

== ENCOUNTER 2024-10-27 13:20 | Outpatient (AMB) | payer OTHER, SELFPAY ==
--- NOTE | 2024-10-27 13:33 | MHC.OFFVIS ---
Vital Signs 10/27/24 13:37 Height 5 ft 10 in Weight 277 lb 5.464 oz BMI 39.8 BP 132/76 Blood Pressure Location Lt brachial Position Sitting Pulse 71 Pulse Source Pulse Oximeter Intake Visit Reasons: follow up/ CTA Otorhinolaryngologist Required: No Accompanied by: Self / Same As Patient Allergies No Known Allergies Allergy (Verified 09/27/24 15:52) Medication List - Last Reconciled 10/27/24 by Rao Hughes MD atorvastatin 20 mg PO BEDTIME 30 days fluticasone propionate 50 mcg/actuation (Flonase Allergy Relief) 1 spray intranasal Q12H 30 days hydrochlorothiazide 25 mg PO QAM 90 days metoprolol succinate ER 12.5 mg (1/2 x 25 mg) PO DAILY 30 days minoxidil 5% (Daylogic Minoxidil) 1 ea topical DAILY 30 days omeprazole 20 mg PO DAILY semaglutide (Ozempic) 0.25 mg (0.368 mL) subcut QWEEK 28 days sildenafil 50 mg PO DAILY PRN 30 days HPI Comments Details: Tyshawn returns for follow-up. Recently seen in consultation regarding PVCs. Apparently, he had a hospitalization in the past for vertigo and during that time, PVCs were detected. Subsequently, evaluated through his own PCP, has had EKGs/Holter monitor. Patient himself has occasional palpitations which could be from his PVCs but no other cardiac symptoms. He is morbidly obese. No known cardiac issues including cardiomyopathy or coronary disease. However, there is family history of coronary disease in both mother and father. Since last seen, he has completed an echocardiogram, coronary CTA. 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 Hearing needs: No Vision needs: No Review of Systems Const Denies chills, Denies fatigue, Denies fever(s), Denies weight gain and Denies weight loss ENT Denies dizziness Card Denies chest pain, Denies leg edema, Denies lightheadedness, Denies palpitations, Denies dyspnea on exertion, Denies orthopnea and Denies other Resp Denies cough and Denies dyspnea on exertion GI Denies hematochezia and Denies change in stool character Musc Denies abnormal gait, Denies muscle weakness, Denies numbness, Denies radiating pain into limb and Denies tingling Neuro Denies abnormal gait, Denies dizziness, Denies numbness and Denies tingling Endo Denies fatigue and Denies palpitations Physical Exam Vital Signs: Last Vital Signs Pulse 71 10/27/24 13:37 BP 132/76 10/27/24 13:37 BMI result Body Mass Index 39.8 Const General: comfortable and no acute distress Orientation/consciousness: patient oriented x3 HEENT Other: Unremarkable Head: Yes normal to inspection Neck Neck: Yes normal visual inspection Chest Chest palpation & inspection: normal inspection of the chest Resp Auscultation: clear to auscultation bilaterally Cardio Palpation: normal PMI Heart sounds: S1 normal heart sound present, S2 normal heart sound present, no gallops, no murmurs and no rubs GI Palpation (GI): Soft to palpation Back/Spine/Pelvis Other: unremarkable Skin General skin exam: no rashes or lesions noted Neuro General: patient oriented x3 Extrem General: Yes normal to inspection Psych Mental Status: mental status grossly normal Assessment & Plan Assessment & Plan (1) Frequent PVCs: Code(s): I49.3 - Ventricular premature depolarization Category: Medical (2) Morbid obesity: Code(s): E66.01 - Morbid (severe) obesity due to excess calories Category: Medical (3) Atherosclerotic cardiovascular disease: Code(s): I25.10 - Atherosclerotic heart disease of [place] coronary artery without angina pectoris Category: Medical Plan Cardiac studies reviewed. Baseline EKG shows sinus rhythm/nonspecific ST-T changes. Echocardiogram with LVEF of 60-65%. No significant valvular findings and otherwise unremarkable. In the coronary CTA, short segment of noncalcific plaque in the proximal LAD with minimal stenosis. Focal calcific plaque in the mid circumflex with minimal stenosis. Holter monitor shows underlying sinus rhythm with an average rate of 74/Min. PVCs with a burden of about 4%. Discussed findings with patient. With regard to the PVCs, could be related to obesity/possible sleep apnea. Sleep study is still pending and he needs to complete that. If it is positive, we will need CPAP. If he finds symptomatic relief from beta-blockers, okay to continue. Otherwise, strongly recommended weight loss and we discussed about that today. With regard to mild coronary disease, again weight loss with the main strategy. He is already on statins and that can be continued. Follow-up in one year. In the interim, he will call with any concerns. Patient Instructions: - Monitor blood pressure regularly at home or at a pharmacy. - Follow-up on insurance approval and begin Ozempic for weight loss. - Prioritize weight management through diet and physical activity. - Attend the scheduled sleep study in November to evaluate for sleep apnea. - Continue taking metoprolol and hydrochlorothiazide as prescribed and report any side effects. - Follow up in one year or sooner if there are new symptoms or concerns. - Maintain cholesterol levels under control as per statin guidelines. Coding Level of Care Code Est Pt Level 4 (79426) Complex EM visit Add On G2211 Diagnoses Frequent PVCs I49.3 Morbid obesity E66.01 Atherosclerotic cardiovascular disease I25.10
[2024-10-27 13:37] VITALS: BP 132/76; PULSE 71; BMI 39.8
--- OUTSIDE RECORDS SUMMARY | 2024-10-27 16:54 | XMS_ITS | Clinical Summary ---
Author Organization [facility] ity Address [address] [place] [address] Care Team Providers Care Longshore Equipment Operator Name Role Phone Unavailable Primary Care Provider [...] patient's age to complete this topic Meningococcal B Vacine Aged Out No lo nger eligible based on patient's age to complete [...]
--- OUTSIDE RECORDS SUMMARY | 2024-10-27 16:54 | XMS_ITS | Clinical Summary ---
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
== END 2024-10-27 13:54 | disposition home or self-care (01) ==
LOC: HO.HCS 13:21
PROVIDERS: PCP Family Medicine; Visit Provider Internal Medicine
DX: I49.3 Ventricular premature depolarization (principal); E66.01 Morbid (severe) obesity due to excess calories; I25.10 Atherosclerotic heart disease of native coronary artery without angina pectoris
CPT/HCPCS: 99214

== ENCOUNTER 2024-10-28 14:34 | Outpatient (AMB) | payer OTHER, SELFPAY ==
[2024-10-28 14:37] VITALS: BP 145/84; PULSE 84; BMI 39.7
--- NOTE | 2024-10-28 14:37 | MHC.OFFVIS ---
Vital Signs 10/28/24 14:37 Height 5 ft 10 in Weight 277 lb BMI 39.7 BP 145/84 H Blood Pressure Location Lt brachial Position Sitting Pulse 84 Intake Visit Reasons: Gerd was Sangeeta patient Intake Note: Tyshawn presents in the office as as Sangeeta patient for GERD. CC: HE states that the GERD is under control with Omeprazole. Seen Sangeeta in the past. Weld Inspector Required: No Allergies No Known Allergies Allergy (Verified 10/28/24 14:40) HPI Comments Details: 44 y.o M who is est with office for PPI responsive gerd. Prev provider [facility]. Routine appt with me to maintain cont of care at this office. Reports an episode of possible food poisoning in Aug 2024. No sx otherwise. Needs refill on omeprazole. CRC screening discussed, mentions occ rectal bleeding from hemorrhoids so stool test may not be the best option. Other than that also est with cardiology for PVCs but cleared by cardiology. 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 Hearing needs: No Vision needs: No Review of Systems Const All systems reviewed & are unremarkable except as noted in HPI and below Physical Exam Vital Signs: Last Vital Signs Pulse 84 10/28/24 14:37 BP 145/84 H 10/28/24 14:37 BMI result Body Mass Index 39.7 No apparent distress Nonicteric Abdomen soft, nondistended Alert and oriented x3, normal gait Assessment & Plan Assessment & Plan (1) Anemia: Code(s): D64.9 - Anemia, unspecified Category: Medical (2) Morbid obesity: Code(s): E66.01 - Morbid (severe) obesity due to excess calories Category: Medical (3) Hypersomnia: Code(s): G47.10 - Hypersomnia, unspecified Category: Medical (4) Colon cancer screening: Code(s): Z12.11 - Encounter for screening for malignant neoplasm of colon Category: Medical Plan 1. Borderline anemia noted on labs. WIthin the realms of lab variability. However will recheck CBC and ferritin If normal, will be set up for screening colo later this fall 2024. PEG prep sent in anticipation 2. GERD Omeprazole refilled Follow up PRN Orders: Orders Complete Blood Count Auto Diff Today D64.9 - Anemia, unspecified Ferritin Today D64.9 - Anemia, unspecified Medications: New peg 3350-electrolytes 236-22.74-6.74 -5.86 gram (Golytely) as per split prep instructions, until fecal effluent is clear 240 mL PO Q10M 4,000 mL 0RF colonoscopy Changed From omeprazole 20 mg PO DAILY 30 caps 5RF To omeprazole 20 mg PO DAILY 90 days 90 caps 2RF Coding Level of Care Code Est Pt Level 4 (19685) Diagnoses Anemia D64.9 Morbid obesity E66.01 Hypersomnia G47.10 Colon cancer screening Z12.11
--- OUTSIDE RECORDS SUMMARY | 2024-10-28 16:08 | XMS_ITS | Clinical Summary ---
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
--- OUTSIDE RECORDS SUMMARY | 2024-10-28 16:08 | XMS_ITS | Clinical Summary ---
Author Organization [facility] ity Address [address] [place] [address] Care Team Providers Care Piggyback Clerk Name Role Phone Unavailable Primary Care Provider [...]
== END 2024-10-28 15:12 | disposition home or self-care (01) ==
LOC: HO.HGI 14:34
PROVIDERS: PCP Family Medicine; Visit Provider Internal Medicine
DX: D64.9 Anemia, unspecified (principal); K21.9 Gastro-esophageal reflux disease without esophagitis; Z12.11 Encounter for screening for malignant neoplasm of colon; G47.10 Hypersomnia, unspecified
CPT/HCPCS: 99214

== ENCOUNTER → 2024-12-01 07:53 | Outpatient (REF) | payer OTHER, SELFPAY ==
--- OUTSIDE RECORDS SUMMARY | 2024-12-01 07:58 | XMS_ITS | Clinical Summary ---
Author Organization [facility] Address [address] [place] [address] Care Team Providers Care Wood Carver Name Role Phone Alexia Ortiz KIET Primary Care Provider [phone] Source Comments PLEASE NOTE, if this patient [...] 08/30/2018 9 ED (erectile dysfunction) 04/13/2017 Immunizations Immunization Administration Dates Next Due Flu, Preservative Free 08/30/2018 INFLUENZA, SEASONAL, INJECTABLE 05/25/2013,08/02 INFLUENZA, SEASONAL, INJECTABLE, PRESERVATIVE FR EE 05/26/2017 TDAP 02/18/2019 Family History Medical History Relation Name Comments Diabetes Father Heart Problems Father [place] Cancer Maternal Grandfather Cancer Maternal Grandmother breast [...] 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
--- OUTSIDE RECORDS SUMMARY | 2024-12-01 07:58 | XMS_ITS | Clinical Summary ---
Author Organization [facility] ity Address [address] [place] [address] Care Team Providers Care Pricing Strategist Name Role Phone Unavailable Primary Care Provider [...] Vaccine (2023-2 5 season) 2024 Influenza Vaccine (Season Ended) 2025 HIB Vaccines Aged Out No longer eligi [...] age to complete this topic Meningococcal B Vaccine Aged Out No l onger eligible based on patient's age to complete [...]
== END ==
LOC: HO.SL 07:53
PROVIDERS: PCP Family Medicine; Visit Provider Internal Medicine
DX: G47.33 Obstructive sleep apnea (adult) (pediatric) (principal)
CPT/HCPCS: 95806

== ENCOUNTER → 2024-12-02 08:12 | Outpatient (BNV) | payer OTHER, SELFPAY | PROVIDERS: PCP Family Medicine; Visit Provider Internal Medicine | DX: G47.33 Obstructive sleep apnea (adult) (pediatric) (principal) | CPT/HCPCS: 95806 ==

== ENCOUNTER 2024-12-13 13:56 | Outpatient (AMB) | payer OTHER, SELFPAY ==
[2024-12-13 14:09] VITALS: BP 144/102; PULSE 80; O2SAT 98; BMI 39.3
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
--- OUTSIDE RECORDS SUMMARY | 2024-12-13 16:06 | XMS_ITS | Clinical Summary ---
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
--- OUTSIDE RECORDS SUMMARY | 2024-12-13 16:06 | XMS_ITS | Clinical Summary ---
Author Organization [facility] ity Address [address] [place] [address] Care Team Providers Care Manager Mental Health Name Role Phone Unavailable Primary Care Provider [...]
== END 2024-12-13 14:48 | disposition home or self-care (01) ==
LOC: HO.HSMS 13:57
PROVIDERS: PCP Family Medicine; Visit Provider Physician Assistant Medical
DX: R53.83 Other fatigue (principal); G47.10 Hypersomnia, unspecified; E66.01 Morbid (severe) obesity due to excess calories; D64.9 Anemia, unspecified; G47.63 Sleep related bruxism
CPT/HCPCS: 99204

== ENCOUNTER → 2024-12-23 08:35 | Outpatient (BNVA) | payer OTHER, SELFPAY | PROVIDERS: PCP Family Medicine; Visit Provider Physician Assistant Surgical ==

== ENCOUNTER 2025-01-02 08:23 | Outpatient (AMB) | payer OTHER, SELFPAY ==
--- OUTSIDE RECORDS SUMMARY | 2025-01-02 08:29 | XMS_ITS | Clinical Summary ---
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
--- OUTSIDE RECORDS SUMMARY | 2025-01-02 08:29 | XMS_ITS | Clinical Summary ---
Author Organization [facility] ity Address [address] [place] [address] Care Team Providers Care Older Adult Social Work Specialist Name Role Phone Unavailable Primary Care Provider [...]
--- NOTE | 2025-01-02 13:22 | A.OFFVIS_ITS ---
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 Allergies No Known Allergies Allergy (Verified 01/02/25 13:22) Medication List - Last Reconciled 01/02/25 by Shadi Martinez MD atorvastatin 20 mg PO BEDTIME 30 days fluticasone propionate 50 mcg/actuation (Flonase Allergy Relief) 1 spray intranasal Q12H 30 days hydrochlorothiazide 25 mg PO QAM 90 days metoprolol succinate ER 12.5 mg (1/2 x 25 mg) PO DAILY 30 days minoxidil 5% (Daylogic Minoxidil) 1 ea topical DAILY 30 days omeprazole 20 mg PO DAILY 90 days peg 3350-electrolytes 236-22.74-6.74 -5.86 gram (Golytely) 240 mL PO Q10M sildenafil 50 mg PO DAILY PRN 30 days HPI HPI 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: Details: Start time: 1.26pm, End time: 2.11pm ?I spent 40 minutes speaking with the patient on the phone plus an additional 5 minutes reviewing and updating records for a total of 45 minutes HPI Comments Details: Previous weight loss efforts: Intermittent fasting Wakes up: 12pm, Sleeps: 4am Breakfast: skips Lunch: 1pm (sandwich) Dinner: 6pm (take our or home food) Snacks: 4pm (ice cream), after dinner (another meal or cookies) Exercise: home stationary bike Beverages: Coffee: none, tea: none, soda: diet soda, juice: none, ETOH: none PFSH Medical History (Updated 01/02/25 @ 14:09 by Shadi Martinez MD) BMI 38.0-38.9,adult Obesity Teeth grinding Cervical radiculopathy GERD (gastroesophageal reflux disease) Dysphagia Hiatal hernia Elevated cholesterol Surgical History History of hip surgery History of esophagogastroduodenoscopy (EGD) Family History (Updated 12/23/24 @ 08:43 by Marina Crespo CMA) Mother Atrial fibrillation, persistent Diabetes HTN (hypertension) Father Heart attack Social History Household Members Other:: Housing: Apartment Alcohol intake: never Patient Tobacco Use Status: Never used Tobacco e-Cigarette/Vaping Use: Never Used service: No Current occupational status: 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 Hearing needs: No Vision needs: No Physical Exam Vital Signs: BMI result Body Mass Index 38.7 Telehealth Telehealth Telehealth Platform: Telephone Location of provider rendering services: practice address Location of patient: address on file Patient Identification confirmed using: Name, : Yes Telehealth method: voice only Patient verbally consented to treatment: Yes Patient verbally consented to billing insurance company: Yes Patient informed of any privacy concerns related to visit: Yes Minutes spent on Phone/Video with Pt.: 45 Assessment & Plan Assessment & Plan (1) Obesity: Code(s): E66.9 - Obesity, unspecified Category: Medical Qualifiers: Obesity type: due to excess calories Obesity classification: adult class 2 (BMI 35 - 39.9) Serious obesity comorbidity presence: with serious comorbidity Body mass index: BMI 38.0-38.9 Qualified Code(s): E66.812 - Obesity, class 2; E66.01 - Morbid (severe) obesity due to excess calories; Z68.38 - Body mass index [BMI] 38.0-38.9, adult Plan: 1. We discussed in detail the available therapeutic options: 1) our lifestyle intervention program that has an average weight loss of 10% in 3 months which is about 22lbs. The meal and exercise plan can be provided by me or using our software melissa that I will provide to you free of charge ? 2) Weight loss medications. Your insurance requires you to have diabetes to approve the injectable medications. We also discussed that you can self pay for the first 3 months and the cost is $399 for the first month and $499 for any other month thereafter. 3) We also discussed about the lap sleeve gastrectomy. I emphasized the importance of close follow-up, adherence to instructions and good communication. The surgery does not replace the need to change your lifestlyle which is the cause of the obesity problem. The surgery provides the motivation to try again to change your lifestyle, it reduces the appetite and make the transition to a better lifestyle easier and doubles the amount of weight you would lose compared to doing the lifestyle change without the surgery. You will need to be on a liquid diet with protein shakes for 2 weeks before surgery to maximize weight loss and boost your nutritional status to recover better from surgery and also for the first two weeks after surgery to let the stomach heal before we introduce other foods. After the first 2 weeks we will introduce protein bars and soft foods like scrambled eggs, cottage cheese and yogurt and after the 6th week will introduce meat, fish and cooked vegetables in small amounts. Over time you should be able to eat everything in small amounts. Side effects like nausea, vomiting, heartburn or abdominal pain are not common in the practice unless you are not following in the practice. This operation requires lifetime commitment to following in our practice and communication with me. You will much less weight and experience side effects if you don?t communicate or not following in the practice. Complications are rare and in our practice is about 1/10 of the national average.
[2025-01-02 13:36] VITALS: BMI 38.7
== END 2025-01-02 14:12 | disposition home or self-care (01) ==
LOC: HO.HBS 08:23
PROVIDERS: PCP Family Medicine; Visit Provider Surgery
DX: E66.812 Obesity, class 2 (principal); E66.01 Morbid (severe) obesity due to excess calories; Z68.38 Body mass index [BMI] 38.0-38.9, adult
CPT/HCPCS: 99204

== ENCOUNTER 2025-01-06 13:48 | Outpatient (REF) | payer OTHER, SELFPAY ==
--- OUTSIDE RECORDS SUMMARY | 2025-01-06 13:50 | XMS_ITS | Clinical Summary ---
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
[2025-01-06 14:00] LABS: MANUAL DIFF FLAG NO
[2025-01-06 16:06] LABS: Basophils Absolute Auto 0.1 X10*3/uL (0.0-0.2); Basophils Percent Auto 0.8 % (0-2); Eosinophils Absolute Auto 0.2 X10*3/uL (0.0-0.4); Eosinophils Percent Auto 2.4 % (0-4); Hematocrit 38.8 % (42.0-52.0); Hemoglobin 13.3 g/dl (14.0-18.0); Imm Gran Abs Auto 0.05 X10*3/uL (0.00-0.03); Imm Gran Pct Auto 0.6 % (0.0-0.4); Lymphocytes Absolute Auto 1.9 X10*3/uL (1.2-4.9); Mean Corpuscular HGB Conc 34.3 g/dl (31.0-36.0); Mean Corpuscular Hemoglobin 26.9 pg (27.0-33.0); Mean Corpuscular Volume 78.5 fL (80.0-98.0); Mean Platelet Volume 10.3 fL (9.4-12.4); Monocytes Absolute Auto 0.6 X10*3/uL (0.1-1.2); Monocytes Percent Auto 7.4 % (2-11); Neutrophils Absolute Auto 5.5 x10*3/uL (2.0-8.3); Neutrophils Percent Auto 65.8 % (45-73); Platelet Count 293 X10*3/uL (160-400); Red Blood Count 4.94 X10*6/uL (4.60-5.80); Red Cell Distribution Width 12.5 % (11.0-16.0); White Blood Count 8.4 X10*3/uL (4.8-10.8)
[2025-01-06 16:38] LABS: Cholesterol 187 mg/dL (<200); HDL Cholesterol 38 mg/dL (>40); LDL Cholesterol Calculated 99 mg/dL (<100); Triglycerides 251 mg/dL (<150)
[2025-01-06 16:56] LABS: Ferritin 111 ng/mL (20-250); Vitamin D 25-OH Total 46.1 ng/mL (>30)
[2025-01-06 17:06] LABS: Folate 9.5 ng/mL (> or = 4.0); Vitamin B12 281 pg/mL (200-900)
[2025-01-06 20:01] LABS: Reflex LDLD? No
[2025-01-09 17:24] LABS: Homocysteine 8.1 umol/L (< or = 13.5)
[2025-01-10 07:34] LABS: Methylmalonic Acid 135 nmol/L (55-335)
== END 2025-01-06 13:49 | disposition home or self-care (01) ==
LOC: HO.LAB 13:48
PROVIDERS: Internal Medicine; PCP Family Medicine; Visit Provider Physician Assistant Medical
DX: D64.9 Anemia, unspecified (principal); E66.01 Morbid (severe) obesity due to excess calories; G47.10 Hypersomnia, unspecified; G47.9 Sleep disorder, unspecified; R53.83 Other fatigue; Z13.6 Encounter for screening for cardiovascular disorders
CPT/HCPCS: 36415; 80061; 82306; 82607; 82728; 82746; 83090; 83921; 85025

== ENCOUNTER 2025-02-09 11:21 | Day surgery (SDC) | payer OTHER, SELFPAY ==
--- OUTSIDE RECORDS SUMMARY | 2025-02-02 08:10 | XMS_ITS | Clinical Summary ---
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 Not on file Not on file Last Filed Vital Signs Vital Sign Reading Time Taken Comments Blood Pressure 130/70 02/18/2019 3:39 PM EDT Pulse 84 02/18/2019 3:39 PM EDT Temperature 37.1 C (98.8 F) 02/18/2019 3:39 PM EDT Respiratory Rate 16 02/18/2019 3:39 PM EDT Oxygen Saturation 97% 02/18/2019 3:39 PM EDT Inhaled Oxygen Concentration - - Weight 117.9 kg (260 lb) 02/18/2019 3:39 PM EDT Height 176 cm (5' 9.29 ) 02/18/2019 3:39 PM EDT Body Mass Index 38.07 02/18/2019 3:39 PM EDT Plan of Treatment Not on file Insurance [facility] Care Teams Annual Greenhouse Manager Relationship Specialty Start Date End Date Alexia Ortiz FNP [address] [place] [address] PCP - General Internal Medicine 08/30/18
--- NOTE | 2025-02-08 09:59 | P.CONAN_ITS ---
HPI - Anesthesia Eval Consult details Narrative: 44yo M for Upper Endoscopy and Colonoscopy [facility] Active Problems Active Problems: All Active Problems Obstructive sleep apnea on CPAP (Acute) BMI 38.0-38.9,adult (Acute) Obesity (Acute) Bruxism, sleep-related (Acute) Colon cancer screening (Acute) Anemia (Acute) Atherosclerotic cardiovascular disease (Acute) Hypertension (Acute) Morbid obesity (Acute) Frequent PVCs (Acute) Vertigo (Acute) Hypersomnia (Acute) Erectile dysfunction (Acute) Fatigue (Acute) Hair thinning (Acute) Right shoulder pain (Acute) Elevated ALT measurement (Acute) Fundic gland polyps of stomach, benign (Acute) Laboratory exam ordered as part of routine general medical examination (Acute) Left hip pain (Acute) GERD (gastroesophageal reflux disease) (Acute) Family history of esophageal cancer (Acute) Right wrist pain (Acute) Cervicalgia (Acute) Cervical radiculopathy (Acute) Nasal congestion (Acute) Other ejaculatory dysfunction (Acute) Dysphagia (Acute) Adult general medical exam (Acute) Hiatal hernia (Acute) Screening for prostate cancer (Acute) Hyperlipidemia (Acute) Past Medical History Medical History BMI 38.0-38.9,adult Obesity Teeth grinding Cervical radiculopathy GERD (gastroesophageal reflux disease) Dysphagia Hiatal hernia Elevated cholesterol Family History Family History Mother Atrial fibrillation, persistent Diabetes HTN (hypertension) Father Heart attack Family history of problems with anesthesia: No Surgical History Surgical History History of hip surgery History of esophagogastroduodenoscopy (EGD) History of Problems with Anesthesia: No Social History Social History Household Members Other:: Housing: Apartment Are you a primary floor care technician to a significant other at home: No Do you presently have visiting nurse or other home services: No Alcohol intake: never Patient Tobacco Use Status: Never used Tobacco e-Cigarette/Vaping Use: Never Used Use of substances other than those prescribed or required for medical reasons: No Have you been hit, kicked, punched, or otherwise hurt by someone within the past year? 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
[2025-02-09 11:30] VITALS: BMI 39.9
--- NOTE | 2025-02-09 11:39 | MHC.SHP ---
Pre-Procedural Eval Section A - 24 Hr Update-Section A only Date of Service: 02/09/25 Section B - Complete if H&P > 30 days Chief Complaint: Anemia Details of Present Illness: Teeth grinding Cervical radiculopathy GERD (gastroesophageal reflux disease) Dysphagia Hiatal hernia Elevated cholesterol Surgical History History of hip surgery History of esophagogastroduodenoscopy (EGD) Present Medications: see Short Stay Collaborative assessment Allergies: Allergies Allergy/AdvReac Type Severity Reaction Status Date / Time No Known Allergies Allergy Verified 01/02/25 13:22 Review of Systems Review of Systems Comment: Ten point ROS negative Exam Exam Comment: Gen appear: No acute distress HEENT: no icterus Chest: No overt resp distress Abd: soft, nontender, nondistended Psych: Stable affect, answering questions appropriately Neuro: A/Ox3 noted to move all extremities spontaneously Ext: no peripheral edema Plan Diagnosis/Plan: Unchanged I have reviewed the history and physical and performed a pertinent physical examination on my patient. No changes have occurred unless specified. Time Spent With Patient Time: Total time managing care of this patient today ____ minutes.
[2025-02-09 11:40] VITALS: BP 134/78; PULSE 86; RESP 15; TEMP 37.1; O2SAT 95
[2025-02-09 11:42] VITALS: BMI 39.9
[2025-02-09] MEDS: Lactated Ringers 1,000 ML 100 ML IVCONT (11:58)
--- NOTE | 2025-02-09 12:13 | HO.ANESPROP2 ---
[facility] Active Problems Active Problems: All Active Problems (Updated 01/02/25 @ 14:09 by Shadi Martinez MD) Obstructive sleep apnea on CPAP (Acute) BMI 38.0-38.9,adult (Acute) Obesity (Acute) Bruxism, sleep-related (Acute) Colon cancer screening (Acute) Anemia (Acute) Atherosclerotic cardiovascular disease (Acute) Hypertension (Acute) Morbid obesity (Acute) Frequent PVCs (Acute) Vertigo (Acute) Hypersomnia (Acute) Erectile dysfunction (Acute) Fatigue (Acute) Hair thinning (Acute) Right shoulder pain (Acute) Elevated ALT measurement (Acute) Fundic gland polyps of stomach, benign (Acute) Laboratory exam ordered as part of routine general medical examination (Acute) Left hip pain (Acute) GERD (gastroesophageal reflux disease) (Acute) Family history of esophageal cancer (Acute) Right wrist pain (Acute) Cervicalgia (Acute) Cervical radiculopathy (Acute) Nasal congestion (Acute) Other ejaculatory dysfunction (Acute) Dysphagia (Acute) Adult general medical exam (Acute) Hiatal hernia (Acute) Screening for prostate cancer (Acute) Hyperlipidemia (Acute) Past Medical History Medical History BMI 38.0-38.9,adult Obesity Teeth grinding Cervical radiculopathy GERD (gastroesophageal reflux disease) Dysphagia Hiatal hernia Elevated cholesterol Functional capacity: independent ambulation Family History Family History Mother Atrial fibrillation, persistent Diabetes HTN (hypertension) Father Heart attack Family history of problems with anesthesia: No Surgical History Surgical History History of hip surgery History of esophagogastroduodenoscopy (EGD) History of Problems with Anesthesia: No Social History Social History Household Members Other:: Housing: Apartment Are you a primary critical care nurse practitioner to a significant other at home: No Do you presently have visiting nurse or other home services: No Alcohol intake: never Patient Tobacco Use Status: Never used Tobacco e-Cigarette/Vaping Use: Never Used Use of substances other than those prescribed or required for medical reasons: No Have you been hit, kicked, punched, or otherwise hurt by someone within the past year? 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 Hearing needs: No Vision needs: No Meds Allergies Allergy/AdvReac Type Severity Reaction Status Date / Time No Known Allergies Allergy Verified 02/09/25 11:55 Active Medications: Current Medications Lactated Ringer's (Lr) 1,000 mls @ 100 mls/hr IVCONT .Q10H SADIE Last Admin: 02/09/25 11:58 Dose: 100 mls/hr Exam Height,Weight and Vital Signs: Height 5 ft 9 in Weight 122.651 kg Last Vital Signs Temp 98.7 F 02/09/25 11:40 Pulse 86 02/09/25 11:40 Resp 15 02/09/25 11:40 BP 134/78 02/09/25 11:40 Pulse Ox 95 02/09/25 11:40 O2 Del Method Room Air 02/09/25 11:40 Airway Mallampati Class: IV TM Dist: >3cm Neck ROM: Full Heart: RRR Lungs: CTA Assessment and Plan Assessment Anesthesia Assessment: Anesthesia Plan Discussed Final Anesthetic Review Family History of Problems with Anesthesia: No History of Problems with Anesthesia: No NPO: Yes ASA Class: III Final Preanesthetic Review: Meds/Allgs Chart Reviewed, Consent Obtained/Reviewed and Anes Risks/Benef Reviewed Patient Risk: Intermediate Procedure Risk: Low Anesthetic Plan Anesthetic Plan: MAC:
--- NOTE | 2025-02-09 13:26 | P.OPN-COLO_ITS ---
Colonoscopy Operative Note Operative Note Date of Service: 02/09/25 Narrative: Procedure: Upper endoscopy and colonoscopy Indication: Anemia Endoscopist: Sisi Hutson MD Anesthesia Provider: Dr Asha Joseph Anesthesia type: MAC Instrument: [id number] and [id number] EGD Procedure:?? The procedure, indications, preparation and potential complications were reviewed with the patient, who indicated understanding and gave written informed consent to proceed. The endoscope was introduced through the mouth, and advanced to the 2nd part of the duodenum. The mucosa was carefully examined on slow withdrawal of the endoscope. The patient tolerated the procedure well. There were no immediate complications.? EGD Findings:? * Esophagus:? Normal esophageal mucosa was noted. The Z-line was at 39 cm. There was a partially obstructing Schatzki's ring at the GE junction. A through the scope balloon was inserted through the biopsy channel of the Schatzki's ring was interrupted by insufflating the balloon from 18-20 mm. * Stomach:? Normal gastric mucosa too numerous to count polyps ranging from size 5 mm to 20 mm. At least 12 large polyps of size 12 to 18 mm were removed with hot snare polypectomy, collected in a rescue net and sent for histology. Retroflexion was performed in the cardia. Random cold forceps biopsies were taken from the stomach. * Duodenum:? Normal duodenal mucosa. Cold forceps biopsies were taken from the duodenal bulb and 2nd portion of the duodenum to rule out celiac sprue. Colonoscopy Procedure:? The patient was then turned for the colonoscopy. An abdominal binder was affixed to the lower abdomen. A digital rectal exam was performed which was abnormal for external hemorrhoids.? A distal attachment cap was affixed to the tip of the scope and the colonoscope was then inserted through the anus and advanced through the colon and advanced to the cecum at 75 cm and terminal ileum.? Appendiceal orifice and ileocecal valve were identified. Mucosa was carefully examined under high definition white light as the instrument was slowly withdrawn in a retrograde panoramic fashion. Retroflexion was performed in rectum. The procedure was not difficult. The quality of the prep was BBPS: 2+3+3 = adequate Withdrawal time 10 minutes Limitations: No limitations Findings: Mucosa: Normal colon and terminal ileum mucosa. Protruding lesions: * 1 sessile polyp of size 8 mm in ascending colon. Cold snare polypectomy was performed. The polyp was completely removed and retrieved. * 1 sessile polyp of size 10 mm in transverse colon. Hot snare polypectomy was performed. The polyp was completely removed and retrieved. * Medium internal hemorrhoids without stigmata of recent bleeding. Impression: 1. Normal esophagus 2. Numerous gastric polyps (polypectomy) 3. Normal duodenum (biopsy) 4. Normal colon and terminal ileum mucosa 5. Total 2 polyps removed 6. Internal and external hemorrhoids Recommendations:?? * Follow-up path results * Avoid NSAIDs * Next EGD depending on gastric polyps path - likely in a year even if benign to remove >1 cm polyps * Repeat colonoscopy for CRC screening in 3 years if the larger polyp removed is an adenoma.
[2025-02-09 13:30] VITALS: BP 117/66; PULSE 96; RESP 16; TEMP 37.1; O2SAT 94
[2025-02-09 13:45] VITALS: BP 118/70; PULSE 84; RESP 20; O2SAT 96
[2025-02-09 13:58] VITALS: BP 124/80; PULSE 83; RESP 18; TEMP 37; O2SAT 96
--- NOTE | 2025-02-09 14:08 | HO.POSTANES ---
Post Anesthesia Evaluation Post Anesthesia Evaluation Date of Service: 02/09/25 Vital Signs: Vital Signs Temp Pulse Resp BP Pulse Ox O2 Del Method 02/09/25 13:58 98.6 F 83 18 124/80 96 Room Air 02/09/25 13:45 84 20 118/70 96 Room Air 02/09/25 13:30 98.7 F 96 16 117/66 94 Room Air 02/09/25 11:40 98.7 F 86 15 134/78 95 Room Air Anesthesia: Monitored Mental Status: Awake Pain Control: Satisfactory Nausea/Vomiting: None Hydration: Adequate Anesthesia-Related Issues: No Anes. Related Issues
== END 2025-02-09 14:11 | disposition home or self-care (01) ==
PROVIDERS: PCP Family Medicine; Visit Provider Internal Medicine
PROC: (CPT 45385; principal; 2025-02-09 13:20)
DX: Z12.11 Encounter for screening for malignant neoplasm of colon (principal); D12.2 Benign neoplasm of ascending colon; D12.3 Benign neoplasm of transverse colon; K57.30 Diverticulosis of large intestine without perforation or abscess without bleeding; K64.8 Other hemorrhoids; K64.4 Residual hemorrhoidal skin tags; D64.9 Anemia, unspecified; K22.2 Esophageal obstruction; K31.7 Polyp of stomach and duodenum; K21.9 Gastro-esophageal reflux disease without esophagitis; E78.00 Pure hypercholesterolemia, unspecified; E66.9 Obesity, unspecified; Z68.39 Body mass index [BMI] 39.0-39.9, adult; Z79.02 Long term (current) use of antithrombotics/antiplatelets; Z79.899 Other long term (current) drug therapy
CPT/HCPCS: 45385; 43249; 43239; 43251; 88305; 88313; 88342; C1726; J2003; J2250; J2704

== ENCOUNTER → 2025-02-09 11:21 | Outpatient (BNV) | payer OTHER, SELFPAY | PROVIDERS: PCP Family Medicine; Visit Provider Internal Medicine | DX: D64.9 Anemia, unspecified (principal); K22.2 Esophageal obstruction; K31.7 Polyp of stomach and duodenum; D12.2 Benign neoplasm of ascending colon; D12.3 Benign neoplasm of transverse colon; K64.8 Other hemorrhoids | CPT/HCPCS: 43249; 43251; 45385 ==

== ENCOUNTER 2025-03-13 15:05 | Outpatient (AMB) | payer OTHER, SELFPAY ==
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
[2025-03-13 15:15] VITALS: BP 140/88; PULSE 75; O2SAT 98; BMI 40.8
--- OUTSIDE RECORDS SUMMARY | 2025-03-13 15:34 | XMS_ITS | Clinical Summary ---
Author Organization [facility] ity Address [address] [place] [address] Care Team Providers Care Pasta Press Operator Name Role Phone Unavailable Primary Care [...] 1999 COVID-19 Vaccine (2023-2 5 season) 2024 Depression Screening 08/17/2024 Influenza Vaccine (#1) 2025 HIB Vaccines Aged Out No longer [...] 5 Years) and At-Risk Patients (6 to 49 Years) Aged Out No longer eligible b ased on patient's age to complete this topic RSV Immunization Patients Un dedra 20 months Aged Out No longer eligible b ased on patient's age to complete this topic Varicella Vaccines Aged Out No longer eligible based on patient's age to complete this topic
--- OUTSIDE RECORDS SUMMARY | 2025-03-13 15:34 | XMS_ITS | Clinical Summary ---
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
== END 2025-03-13 15:47 | disposition home or self-care (01) ==
LOC: HO.HSMS 15:06
PROVIDERS: PCP Family Medicine; Visit Provider Physician Assistant Medical
DX: G47.33 Obstructive sleep apnea (adult) (pediatric) (principal); R53.83 Other fatigue; E66.01 Morbid (severe) obesity due to excess calories; D64.9 Anemia, unspecified; G47.63 Sleep related bruxism
CPT/HCPCS: 99214

== ENCOUNTER 2025-05-10 07:15 | Outpatient (REF) | payer OTHER, SELFPAY ==
--- OUTSIDE RECORDS SUMMARY | 2025-05-10 07:17 | XMS_ITS | Clinical Summary ---
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
--- OUTSIDE RECORDS SUMMARY | 2025-05-10 07:17 | XMS_ITS | Clinical Summary ---
Author Organization [facility] ity Address [address] [place] [address] Care Team Providers Care Circuit Court Judge Name Role Phone Unavailable Primary Care Provider [...] of 3 - 19+ 3-dose series) 1999 Depression Screening 08/17/2024 COVID-19 Vaccine (1 - 2023-2 5 season) 2025 Influenza Vaccine (#1) 2025 HIB Vaccines Aged [...]
[2025-05-10 09:11] LABS: Hematocrit 37.8 % (42.0-52.0); Hemoglobin 13.0 g/dl (14.0-18.0); Mean Corpuscular HGB Conc 34.4 g/dl (31.0-36.0); Mean Corpuscular Hemoglobin 27.0 pg (27.0-33.0); Mean Corpuscular Volume 78.4 fL (80.0-98.0); NRBC Abs Auto 0.000 X10*3/uL (0.0-0.012); NRBC Pct Auto 0.0 /100WBC (0.0-0.2); Platelet Count 291 X10*3/uL (160-400); Red Blood Count 4.82 X10*6/uL (4.60-5.80); White Blood Count 8.2 X10*3/uL (4.8-10.8)
[2025-05-10 09:45] LABS: Iron 79 mcg/dL (45-160); Percent Iron Saturation 23 % (15-50); Total Iron Binding Capacity 344 mcg/dL (228-428); Unsaturated Iron Binding 265 ug/dL
[2025-05-10 10:05] LABS: Ferritin 48 ng/mL (20-250)
[2025-05-10 10:15] LABS: Folate 11.7 ng/mL (> or = 4.0); Vitamin B12 241 pg/mL (200-900)
== END 2025-05-10 07:16 | disposition home or self-care (01) ==
LOC: HO.LAB 07:15
PROVIDERS: PCP Family Medicine; Visit Provider Internal Medicine
DX: D64.9 Anemia, unspecified (principal)
CPT/HCPCS: 36415; 82607; 82728; 82746; 83540; 85027

== ENCOUNTER 2025-05-17 14:25 | Outpatient (AMB) | payer OTHER, SELFPAY ==
--- NOTE | 2025-05-17 14:28 | MHC.PC.OV ---
Vital Signs 05/17/25 14:35 Height 5 ft 9 in Weight 282 lb 4 oz BMI 41.7 BP 138/82 Blood Pressure Location Rt brachial Position Sitting Respiration 18 Pulse 78 Pulse Source Pulse Oximeter Temp 98.1 F Temp Source Temporal Artery Scan Pulse Oximetry (%) 98 Oxygen Delivery Method Room Air Intake Visit Reasons: Blood pressure Intake Note: Tyshawn presents in the office today for a follow up to his blood pressure. Allergies No Known Allergies Allergy (Verified 05/17/25 14:32) Medication List - Last Reconciled 05/17/25 by Rodney Keyes MD atorvastatin 20 mg PO BEDTIME 30 days fluticasone propionate 50 mcg/actuation (Flonase Allergy Relief) 1 spray intranasal Q12H 30 days hydrochlorothiazide 50 mg PO QAM 90 days metoprolol succinate ER 12.5 mg (1/2 x 25 mg) PO DAILY minoxidil 5% (Day[employer] Minoxidil) 1 ea topical DAILY 30 days omeprazole 20 mg PO DAILY 90 days Tobacco use date assessed: 05/17/25 Dental Screening Dental Screen Date: 05/17/25 Did you have a dental visit in the last 12 months?: Yes Did you have a dental problem in the last 6 months where you did not have access to dental care?: No Was dental information given to patient?: Patient has dentist HPI Blood pressure HPI Details 45 y/o male presents to f/u HTN. Blood pressure today 138/82, 78p. He is on metoprolol 12.5mg, HCTZ 25mg. Hx of atherosclerotic cardiovascular disease. Continues to f/u with Cardiology. Reports ongoing ear discomfort/ringing. Has noted symptoms for months now. HPI Comments History of Present Illness Details Documentation assistance for Rodney Keyes MD, was provided by Kevin Smith,? Pilates Coordinator on 05/17/2025 at 2:50 PM EST. I, Dr. Keyes, have read, observed, and verified documentation. ? PFSH Medical History BMI 38.0-38.9,adult Obesity Teeth grinding Cervical radiculopathy GERD (gastroesophageal reflux disease) Dysphagia Hiatal hernia Elevated cholesterol Surgical History H/O colonoscopy History of hip surgery History of esophagogastroduodenoscopy (EGD) Family History (Updated 05/17/25 @ 14:34 by Livier Suarez CMA) Mother Atrial fibrillation, persistent Diabetes HTN (hypertension) Father Heart attack Paternal Grandfather Substance abuse Alcoholism Paternal Grandmother Substance abuse Alcoholism Maternal Grandfather Substance abuse Alcoholism Maternal Grandmother Substance abuse Alcoholism Social History (Updated 05/17/25 @ 14:35 by Livier Suarez CMA) Household Members Other:: Housing: Apartment Are you a primary intensive care unit registered nurse to a significant other at home: No Do you presently have visiting nurse or other home services: No Alcohol intake: never Patient Tobacco Use Status: Never used Tobacco e-Cigarette/Vaping Use: Never Used Second Hand Smoke Exposure: No Substance Use Type: Marijuana Substance Use Type Other:: Edibles Substance Use Frequency: Occasionally service: No Current occupational status: 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 1. Little interest or pleasure in doing things: not at all 2. Feeling down, depressed, or hopeless: not at all 3. Trouble falling or staying asleep, or sleeping too much: not at all 4. Feeling tired or having little energy: several days 5. Poor appetite or overeating: several days 6. Feeling bad about yourself - or that you are a failure or have let yourself or your family down: several days 7. Trouble concentrating on things, such as reading the newspaper or watching television: not at all 8. Moving or speaking so slowly that other people could have noticed. Or the opposite - being so fidgety or restless that you have been moving around a lot more than usual: not at all 9. Thoughts that you would be better off or of hurting yourself in some way: not at all Total score: 3 Source: Developed by Drs. Joaquim Fox, Theresa Morales, Travis Gamble and colleagues, with an educational buddy from [employer]. Thrive Questionnaire Date Thrive assessed: 09/27/24 I am a: Patient What is your living situation today?: I choose not to answer this question Within the past 12 months, did the food you bought not last and you didn't have the money to get more?: I choose not to answer this question Within the past 12 months, did you worry whether your food would run out before you got money to buy more?: I choose not to answer this question Do you have trouble paying for medicines?: I choose not to answer this question Do you have trouble getting transportation to medical appointments?: I choose not to answer this question Do you have trouble paying your heating and electricity bill?: I choose not to answer this question Do you have trouble taking care of your child, family member or friend?: I choose not to answer this question Do you have trouble with day-to-day activities such as bathing, preparing meals, shopping, managing finances, etc.?: I choose not to answer this question Are you currently unemployed and looking for a job?: I choose not to answer this question Are you interested in more education?: I choose not to answer this question Please select the resources that you would like help with: None Currently or been in a relationship where the following occur: I choose not to answer THRIVE Score: 0 OJ-7 AMB Questionnaire OJ-7 Date OJ - 7 assessed: 10/08/23 Source: Developed by Drs. Joaquim Fox, Theresa Morales, Travis Gamble and colleagues, with an educational buddy from [employer]. Review of Systems Const Denies chills, Denies fatigue, Denies fever(s), Denies headache(s) and Denies weakness ENT Denies dizziness and Denies headache(s) Card Denies dyspnea Resp Denies cough, Denies dyspnea, Denies wheezing and Denies other (shortness of breath) Musc Denies numbness and Denies tingling Neuro Denies dizziness, Denies headache(s), Denies numbness, Denies tingling and Denies weakness Psych Denies anxiety and Denies depression Endo Denies fatigue Aller/Immun Denies wheezing Physical exam (Primary Care) Vital Signs: Last Vital Signs Temp 98.1 F 05/17/25 14:35 Pulse 78 05/17/25 14:35 Resp 18 05/17/25 14:35 BP 138/82 05/17/25 14:35 Pulse Ox 98 05/17/25 14:35 Oxygen Delivery Method Room Air 05/17/25 14:35 BMI result Body Mass Index 41.7 Tobacco/Smoking Status: Tobacco use Status Tobacco use date assessed 05/17/25 05/17/25 14:38 Patient Tobacco Use Status Never used Tobacco 05/17/25 14:35 e-Cigarette/Vaping Use Never Used 05/17/25 14:35 PHQ-9: PHQ-9 Score PHQ-9: Total score 3 05/17/25 14:50 Thrive Assessment: Date of Thrive Assessment Date Thrive assessed 09/27/24 05/17/25 14:29 Currently or been in a relationship where the following occur: I choose not to answer Const General: well developed; No acute distress Nutritional Appearance: well nourished Orientation/consciousness: patient oriented x3 HENMT Head: Yes normocephalic and Yes atraumatic Eyes General: appearance normal, both eyes and all related structures Pupils: Equal, round and reactive pupils present EOM: EOMs intact bilaterally Resp Effort & Inspection: normal respiratory effort Neuro General: patient oriented x3 and gait normal Cranial nerves: Yes Equal, round and reactive pupils present Psych Affect: normal affect Coding Level of Care Code Est Pt Level 4 (04249) Diagnoses Hypertension I10 Atherosclerotic cardiovascular disease I25.10 NATY on CPAP G47.33 Anemia, unspecified type D64.9 Anemia type: unspecified type Ear discomfort H92.09 Assessment & Plan Assessment & Plan (1) Hypertension: Code(s): I10 - Essential (primary) hypertension Category: Medical Plan: Blood pressure is still too high. Goal is less than 130/80 Increase hydrochlorothiazide Continue metoprolol (2) Atherosclerotic cardiovascular disease: Code(s): I25.10 - Atherosclerotic heart disease of kiana coronary artery without angina pectoris Category: Medical Plan: Stable f/u w/ Cardiology as recommended (3) NATY on CPAP: Code(s): G47.33 - Obstructive sleep apnea (adult) (pediatric) Category: Medical Plan: Continue CPAP (4) Anemia: Code(s): D64.9 - Anemia, unspecified Category: Medical Qualifiers: Anemia type: unspecified type Qualified Code(s): D64.9 - Anemia, unspecified Plan: Mild microcytic anemia Iron levels at low normal Will have him trial iron supplement Will recheck levels with next blood draw (5) Ear discomfort: Code(s): H92.09 - Otalgia, unspecified ear Category: Medical Plan: Left-sided tinnitus and ear discomfort Appears to have small perforation at 06:00 location Referred to ENT Orders: Orders TSH reflex Free T4 Today Z00.00 - Encounter for general adult medical examination without abnormal findings UA CC w/rflx Micro + Cult Today Z00.00 - Encounter for general adult medical examination without abnormal findings Hemoglobin A1c Today R73.01 - Impaired fasting glucose Ferritin Today D64.9 - Anemia, unspecified IRON PROFILE Today D64.9 - Anemia, unspecified Comprehensive Zirconia. Panel Fast Today Z00.00 - Encounter for general adult medical examination without abnormal findings Complete Blood Count Auto Diff Today Z00.00 - Encounter for general adult medical examination without abnormal findings Microalbumin, Random (w Creat) Today I10 - Essential (primary) hypertension Prostate Specific Antigen Scr Today Z12.5 - Encounter for screening for malignant neoplasm of prostate Lipid Panel Today Z00.00 - Encounter for general adult medical examination without abnormal findings Reticulocyte Count Today D64.9 - Anemia, unspecified Referrals Ear/Nose/Throat Referral H92.09 - Otalgia, unspecified ear, H93.12 - Tinnitus, left ear Medications: New ferrous sulfate (Iron (ferrous sulfate)) 325 mg PO DAILY 30 tabs 2RF 30 days D64.9 - Anemia, unspecified Changed From hydrochlorothiazide 25 mg PO QAM 90 days 90 tabs 3RF To hydrochlorothiazide 50 mg PO QAM 90 tabs 3RF 90 days
[2025-05-17 14:35] VITALS: BP 138/82; PULSE 78; RESP 18; TEMP 36.7; O2SAT 98; BMI 41.7
--- OUTSIDE RECORDS SUMMARY | 2025-05-17 15:35 | XMS_ITS | Clinical Summary ---
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 Care Teams Vehicle Maintenance Technician Relationship Specialty Start Date End Date Alexia Ortiz FNP [address] [place] [address] PCP - General Internal Medicine 08/30/18
--- OUTSIDE RECORDS SUMMARY | 2025-05-17 15:35 | XMS_ITS | Clinical Summary ---
Author Organization [facility] ity Address [address] [place] [address] Care Team Providers Care Bedspread Folder Name Role Phone Unavailable Primary Care Provider [...] of 3 - 19+ 3-dose series) 1999 HPV Vaccines (1 - 3-dose SCD M series) 2007 Depression Screening 08/17/2024 COVID-19 Vaccine (1 - 2023-2 5 season) 2025 Influenza Vaccine (#1) 2025 RSV Immunization Adult Patie nts (1 - 1-dose 75+ series) 2055 HIB Vaccines Aged Out No longer eligi [...]
== END 2025-05-17 15:03 | disposition home or self-care (01) ==
LOC: HO.HMCFM 14:25
PROVIDERS: PCP Family Medicine; Visit Provider Family Medicine
DX: I10 Essential (primary) hypertension (principal); I25.10 Atherosclerotic heart disease of native coronary artery without angina pectoris; G47.33 Obstructive sleep apnea (adult) (pediatric); D64.9 Anemia, unspecified; H92.09 Otalgia, unspecified ear

== ENCOUNTER 2025-05-19 08:40 | Outpatient (REF) | payer OTHER, SELFPAY ==
--- OUTSIDE RECORDS SUMMARY | 2025-05-19 09:00 | XMS_ITS | Clinical Summary ---
Author Organization [facility] ity Address [address] [place] [address] Care Team Providers Care Non Food Receiving Clerk Name Role Phone Unavailable Primary Care [...]
--- OUTSIDE RECORDS SUMMARY | 2025-05-19 09:00 | XMS_ITS | Clinical Summary ---
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
[2025-05-22 13:54] LABS: Hematocrit 43.8 % (38.5-50.0); Hemoglobin 14.1 g/dL (13.2-17.1); MCH 27.0 pg (27.0-33.0); MCV 83.7 fL (80.0-100.0); RBC 5.23 Million/uL (4.20-5.80); RDW 13.2 % (11.0-15.0)
== END 2025-05-19 08:41 | disposition home or self-care (01) ==
LOC: HO.LAB 08:40
PROVIDERS: PCP Family Medicine; Visit Provider Internal Medicine
DX: R71.8 Other abnormality of red blood cells (principal)
CPT/HCPCS: 36415; 83020; 85014; 85018; 85041

== ENCOUNTER 2025-06-26 13:45 | Outpatient (AMB) | payer OTHER, SELFPAY ==
--- NOTE | 2025-06-26 13:47 | A.OFFVIS_ITS ---
Vital Signs 06/26/25 13:49 Height 5 ft 9 in Weight 270 lb BMI 39.9 BP 140/88 H Blood Pressure Location Rt brachial Position Sitting Pulse 98 Pulse Source Pulse Oximeter Pulse Oximetry (%) 94 Oxygen Delivery Method Room Air Intake Visit Reasons: f/u anemia Intake Note: Est pt for mgmt of GERD + Anemia. CC: Pt denies any new GI concerns or sx at this time. Harness Preparer Required: No Accompanied by: Self / Same As Patient Allergies No Known Allergies Allergy (Verified 06/26/25 13:50) HPI Comments Details: 44 y.o M who is est with office for PPI responsive gerd. Prev provider [facility] [place]. Routine appt with me to maintain cont of care at this office. Reports an episode of possible food poisoning in Aug 2024. No sx otherwise. Needs refill on omeprazole. CRC screening discussed, mentions occ rectal bleeding from hemorrhoids so stool test may not be the best option. Other than that also est with cardiology for PVCs but cleared by cardiology. EGD.colo 1. Normal esophagus 2. Numerous gastric polyps (polypectomy) 3. Normal duodenum (biopsy) 4. Normal colon and terminal ileum mucosa 5. Total 2 polyps removed 6. Internal and external hemorrhoids Path: A. Duodenum, biopsy: Chronic inactive duodenitis. B. Stomach, polypectomies: Fundic gland polyps with background moderate chronic inactive inflammation; no Helicobacter organisms seen. C. Colon, ascending, polypectomy: Tubular adenoma; negative for high-grade dysplasia or carcinoma. D. Colon, transverse, polypectomy: Fragments of tubular adenoma; negative for high-grade dysplasia or carcinoma. 06/26/25: Here for follow up. Most recent labs reviewed. No hemoglobinopathy identified. Normal iron levels. B12 is borderline, per chart review pt was previously Rxed OTC B12 but doesnt recall taking this. [facility] Medical History BMI 38.0-38.9,adult Obesity Teeth grinding Cervical radiculopathy GERD (gastroesophageal reflux disease) Dysphagia Hiatal hernia Elevated cholesterol Surgical History H/O colonoscopy History of hip surgery History of esophagogastroduodenoscopy (EGD) Family History Mother Atrial fibrillation, persistent Diabetes HTN (hypertension) Father Heart attack Paternal Grandfather Substance abuse Alcoholism Paternal Grandmother Substance abuse Alcoholism Maternal Grandfather Substance abuse Alcoholism Maternal Grandmother Substance abuse Alcoholism Social History Household Members Other:: Housing: Apartment Are you a primary care management specialist to a significant other at home: No Do you presently have visiting nurse or other home services: No Alcohol intake: never Patient Tobacco Use Status: Never used Tobacco e-Cigarette/Vaping Use: Never Used Second Hand Smoke Exposure: No Substance Use Type: Marijuana service: No Current occupational status: 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 Hearing needs: No Vision needs: No Review of Systems Const All systems reviewed & are unremarkable except as noted in HPI and below Physical Exam Exam Exam: No apparent distress Nonicteric Abdomen soft, nondistended Alert and oriented x3, normal gait Vital Signs: Last Vital Signs Pulse 98 06/26/25 13:49 BP 140/88 H 06/26/25 13:49 Pulse Ox 94 06/26/25 13:49 Oxygen Delivery Method Room Air 06/26/25 13:49 BMI result Body Mass Index 39.9 Assessment & Plan Assessment & Plan (1) Fundic gland polyps of stomach, benign: Code(s): D13.1 - Benign neoplasm of stomach Category: Medical (2) Personal history of colonic polyps: Code(s): Z86.010 - Personal history of colon polyps Category: Medical (3) Fatigue: Code(s): R53.83 - Other fatigue Category: Medical Qualifiers: Fatigue type: unspecified Qualified Code(s): R53.83 - Other fatigue (4) Anemia: Code(s): D64.9 - Anemia, unspecified Category: Medical Qualifiers: Anemia type: unspecified type Qualified Code(s): D64.9 - Anemia, unspecified Plan 1. FGP: Will need EGD in a year to follow up on larger polyps Order placed for EGD january 2026 2. Anemia Likely 2/2 B12 deficiency. Advised PO supplementation Recheck CBC and B12 in 3 months If minimal improvement, will favor IM replacement. 3. Personal hx of polyps Had 10 mm T.A. Next colo recommended in 3 years i.e 2027. Follow up after EGD Orders: Orders Complete Blood Count no Diff 3 Months R53.83 - Other fatigue Intrinsic Factor Antibodies 3 Months D64.9 - Anemia, unspecified Vitamin B12 3 Months R53.83 - Other fatigue Referrals GI Procedure Notification D13.1 - Benign neoplasm of stomach Medications: New cyanocobalamin-methylcobalamin 600-600 mcg (Neurin-SL) 2 tabs sublingual DAILY 180 tabs 0RF 90 days Coding Level of Care Code Est Pt Level 4 (74195) Diagnoses Fundic gland polyps of stomach, benign D13.1 Personal history of colonic polyps Z86.010 Fatigue, unspecified type R53.83 Fatigue type: unspecified Anemia, unspecified type D64.9 Anemia type: unspecified type
[2025-06-26 13:49] VITALS: BP 140/88; PULSE 98; O2SAT 94; BMI 39.9
--- OUTSIDE RECORDS SUMMARY | 2025-06-26 15:57 | XMS_ITS | Clinical Summary ---
Author Organization [facility] ity Address [address] [place] [address] Care Team Providers Care Parachute Folder Name Role Phone Unavailable Primary Care [...]
--- OUTSIDE RECORDS SUMMARY | 2025-06-26 15:57 | XMS_ITS | Clinical Summary ---
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
== END 2025-06-26 14:35 | disposition home or self-care (01) ==
LOC: HO.HGI 13:46
PROVIDERS: PCP Family Medicine; Visit Provider Internal Medicine
DX: D13.1 Benign neoplasm of stomach (principal); Z86.0100 Personal history of colon polyps, unspecified; R53.83 Other fatigue; D64.9 Anemia, unspecified
CPT/HCPCS: 99214